=== PATIENT | female | born 1960 | race Caucasian/White ===

== ENCOUNTER 2016-12-23 14:18 | Emergency (ER) | payer MEDICAID ==
[~2016-12-23] VITALS: Ht 172.7 cm; Wt 113.4 kg
[~2016-12-23 14:18] MED LIST: NORCO 10/325 MG1 TAB PO; UNKNOWN ANTIBIOTIC PO
[2016-12-23 14:30] VITALS: BP 161/87
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
--- NOTE | 2016-12-23 15:29 | NUR ---
DR. STOVER AT BEDSIDE.
[2016-12-23 15:46] VITALS: BP 125/73
--- NOTE | 2016-12-23 15:47 | NUR ---
Patient discharged with v/s stable. Written and verbal after care instructions given and explained. Patient alert, oriented and verbalized understanding of instructions. Ambulatory with steady gait. All questions addressed prior to discharge. ID band removed. Patient advised to follow up with PMD. Rx of BACTRIM,KEFLEX given. Patient educated on indication of medication including possible reaction and side effects. Opportunity to ask questions provided and answered.ENCOURAGED FLUID INTAKE AND PT AGREED WITH IT.
== END 2016-12-23 15:47 | disposition home or self-care (01) ==
LOC: MED 14:34
DX: L03.211 Cellulitis of face (principal); Z90.49 Acquired absence of other specified parts of digestive tract; Z98.84 Bariatric surgery status

== ENCOUNTER 2017-02-06 13:41 | Emergency (ER) | payer MEDICAID ==
[~2017-02-06] VITALS: Ht 172.7 cm; Wt 115.3 kg
[2017-02-06 13:46] VITALS: BP 149/87
--- NOTE | 2017-02-06 14:18 | NUR ---
Patient ambulated to OF2 to be evaluated as fast track by Dr. Pal.
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
--- NOTE | 2017-02-06 14:30 | NUR ---
Patient being evaluated by physician at bedside.
[2017-02-06 15:34] VITALS: BP 142/85
--- NOTE | 2017-02-06 15:34 | NUR ---
Patient discharged with v/s stable. Written and verbal after care instructions given and explained. Patient alert, oriented and verbalized understanding of instructions. Ambulatory with steady gait. All questions addressed prior to discharge. ID band removed. Patient advised to follow up with PMD. Rx of KEFLEX 500MG CAPS given. Patient educated on indication of medication including possible reaction and side effects. Opportunity to ask questions provided and answered.
== END 2017-02-06 15:34 | disposition home or self-care (01) ==
LOC: MED 13:41
DX: L03.311 Cellulitis of abdominal wall (principal)

== ENCOUNTER 2017-04-19 23:03 | Emergency (ER) | payer MEDICAID ==
[~2017-04-19] VITALS: Ht 172.7 cm; Wt 120.2 kg
[2017-04-19 23:06] VITALS: BP 163/97
--- NOTE | 2017-04-19 23:17 | NUR ---
VISION ACUITY RT EYE 20/30 , LT EYE 20/20 BOTH 20/20
--- NOTE | 2017-04-19 23:20 | NUR ---
TO ER BED 8
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
[2017-04-19] MEDS ORDERED: ceFAZolin 1,000 MG VIAL IM ONE (23:25)
--- NOTE | 2017-04-19 23:25 | NUR ---
Patient being evaluated by physician at bedside.
[2017-04-19] MEDS ORDERED: WATER STERILE 10 ML MC ONE (23:41)
[2017-04-19 23:57] VITALS: BP 152/91
== END 2017-04-19 23:56 | disposition home or self-care (01) ==
LOC: MED 23:03
DX: L03.211 Cellulitis of face (principal)
CPT/HCPCS: 96372; 99283; J0690

== ENCOUNTER 2017-07-13 22:06 | Emergency (ER) | payer MEDICAID ==
[~2017-07-13] VITALS: Ht 172.7 cm; Wt 116.1 kg
[2017-07-13 22:11] VITALS: BP 139/84
--- NOTE | 2017-07-13 22:50 | NUR ---
PT TAKEN TO OF
--- NOTE | 2017-07-13 22:55 | NUR ---
Dr. Pal evaluating patient
[2017-07-13 23:45] VITALS: BP 139/84
== END 2017-07-13 23:45 | disposition home or self-care (01) ==
LOC: MED 22:06
DX: L03.311 Cellulitis of abdominal wall (principal)
CPT/HCPCS: 99283

== ENCOUNTER 2017-08-23 19:28 | Emergency (ER) | payer MEDICAID ==
[~2017-08-23] VITALS: Ht 170.2 cm; Wt 113.4 kg
[2017-08-23 19:34] VITALS: BP 152/86
[2017-08-23] MEDS ORDERED: SULFAMETH/TRIMETH DS 800/160MG 1 TAB PO ONE (20:35)
[2017-08-23] MEDS ORDERED: CEPHALEXIN 500 MG CAP PO ONE (20:35)
[2017-08-23 21:07] VITALS: BP 134/75
== END 2017-08-23 21:07 | disposition home or self-care (01) ==
LOC: MED 19:28
DX: L03.311 Cellulitis of abdominal wall (principal); R03.0 Elevated blood-pressure reading, without diagnosis of hypertension
CPT/HCPCS: 99283

== ENCOUNTER 2017-12-12 18:40 | Emergency (ER) | payer SELFPAY ==
--- NOTE | 2017-12-12 19:10 | NUR ---
PATIENT LEFT WITHOUT BEING SEEN BY DR. MAGAÑA. NO FURTHER CARE PROVIDED FOR PATIENT.
== END 2017-12-12 19:10 | disposition left against medical advice (07) ==
LOC: MED 18:40
DX: Z53.21 Procedure and treatment not carried out due to patient leaving prior to being seen by health care provider (principal)

== ENCOUNTER 2018-05-09 19:03 | Emergency (ER) | payer MEDICAID ==
[~2018-05-09] VITALS: Ht 172.7 cm; Wt 115.7 kg
[2018-05-09 19:04] VITALS: BP 121/81
[2018-05-09 19:41] VITALS: BP 120/80
== END 2018-05-09 19:41 | disposition home or self-care (01) ==
LOC: MED 19:03
DX: L73.9 Follicular disorder, unspecified (principal); F32.9 Major depressive disorder, single episode, unspecified; F41.9 Anxiety disorder, unspecified
CPT/HCPCS: 99283

== ENCOUNTER 2018-08-10 19:03 | Emergency (ER) | payer MEDICAID ==
[~2018-08-10] VITALS: Ht 172.7 cm; Wt 115.7 kg
[2018-08-10 19:06] VITALS: BP 130/80
[2018-08-10] MEDS ORDERED: KETOROLAC 60 MG/2 ML VIAL IM ONE (20:25)
[2018-08-10 21:18] VITALS: BP 129/79
== END 2018-08-10 21:19 | disposition home or self-care (01) ==
LOC: MED 19:03
DX: S80.02XA Contusion of left knee, initial encounter (principal); F17.200 Nicotine dependence, unspecified, uncomplicated; Z90.49 Acquired absence of other specified parts of digestive tract; Z98.84 Bariatric surgery status; W18.39XA Other fall on same level, initial encounter; Y93.89 Activity, other specified; Y92.89 Other specified places as the place of occurrence of the external cause; Y99.8 Other external cause status
CPT/HCPCS: 29505; 73562; 96372; 99284; J1885

== ENCOUNTER 2018-08-22 18:20 | Emergency (ER) | payer MEDICAID ==
[~2018-08-22] VITALS: Ht 170.2 cm; Wt 115.7 kg
[2018-08-22 18:36] VITALS: BP 139/97
--- NOTE | 2018-08-22 18:40 | NUR ---
PT AMBULATES TO BED 8
--- NOTE | 2018-08-22 18:43 | NUR ---
PATIENT PRESENTS TO ED WITH C/O LT KNEE PAIN X 2 1/2 WEEKS S/P FALL, NO SWELLING, NO REDNESS, PATIENT STATES PAIN OF 6/10 AT THIS TIME; VSS; PATIENT POSITIONED FOR COMFORT; HOB ELEVATED; BEDRAILS UP X2; BED DOWN. ER MD MADE AWARE OF PT STATUS.
[2018-08-22] MEDS ORDERED: KETOROLAC 60 MG/2 ML VIAL IM ONE (19:05)
--- NOTE | 2018-08-22 19:08 | NUR ---
XRAY AT BEDSIDE
--- NOTE | 2018-08-22 19:17 | NUR ---
report given to nightclub manager nurse for continue of care. pt is resting in bed, no s/s of distress, vss, denies pain.
--- NOTE | 2018-08-22 19:18 | NUR ---
PT SITTING UP IN BED, VITALS STABLE. PT STATED SHE DOES NOT HAVE PAIN AT THIS TIME. MADE AWARE.
--- NOTE | 2018-08-22 19:52 | NUR ---
4 INCH MYRIAM WRAP APPLIED TO PT L KNEE. +CSM
[2018-08-22 19:55] VITALS: BP 132/89
--- NOTE | 2018-08-22 19:56 | NUR ---
Patient discharged with v/s stable. Written and verbal after care instructions given and explained. Patient alert, oriented and verbalized understanding of instructions. Ambulatory with steady gait. All questions addressed prior to discharge. ID band removed. Patient advised to follow up with PMD. Rx of NAPROXYN given. Patient educated on indication of medication including possible reaction and side effects. Opportunity to ask questions provided and answered.
== END 2018-08-22 19:56 | disposition home or self-care (01) ==
LOC: MED 18:20
DX: S80.02XA Contusion of left knee, initial encounter (principal); W19.XXXA Unspecified fall, initial encounter; Y93.89 Activity, other specified; Y92.89 Other specified places as the place of occurrence of the external cause; Y99.8 Other external cause status
CPT/HCPCS: 73562; 96372; 99284; J1885

== ENCOUNTER 2018-12-04 00:01 | Emergency (ER) | payer MEDICAID ==
[~2018-12-04] VITALS: Ht 172.7 cm; Wt 118.4 kg
[2018-12-04 00:17] VITALS: BP 137/93
--- NOTE | 2018-12-04 00:22 | NUR ---
PT AMBULATED TO BED 2
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
--- NOTE | 2018-12-04 00:44 | NUR ---
X-RAY AT BEDSIDE AT THIS TIME.
[2018-12-04] MEDS ORDERED: KETOROLAC 30 MG/ML VIAL IM ONE (01:20)
--- NOTE | 2018-12-04 01:20 | NUR ---
PT LAYING IN BED, VSS, COMPLAINING OF PAIN AT 10/. PROVIDED ICE PACK FOR PT. OFELIA ESPINOSA NOTIFIED.
--- NOTE | 2018-12-04 01:56 | NUR ---
ANISH EMT PUTING SLING AND SPLINT ON PT AT THIS TIME.
--- NOTE | 2018-12-04 02:05 | NUR ---
VOLAR SPLINT APPLIED TO PT L ARM, RESTING IN POSITION OF FUNCTION AND WRAPPED IN MYRIAM WRAP. +CSM
--- NOTE | 2018-12-04 02:15 | NUR ---
SLING SIZE MEDIUM APPLIED TO PT L ARM, FITTED TO REST ARM PARALLEL TO GROUND
[2018-12-04 02:27] VITALS: BP 130/80
== END 2018-12-04 02:28 | disposition home or self-care (01) ==
LOC: MED 00:01
DX: S63.502A Unspecified sprain of left wrist, initial encounter (principal); W18.09XA Striking against other object with subsequent fall, initial encounter; Y93.89 Activity, other specified; Y92.89 Other specified places as the place of occurrence of the external cause; Y99.8 Other external cause status
CPT/HCPCS: 29125; 73090; 73130; 96372; 99283; J1885; Q0092

== ENCOUNTER 2019-01-05 17:30 | Emergency (ER) | payer MEDICAID ==
[~2019-01-05] VITALS: Ht 172.7 cm; Wt 115.9 kg
[2019-01-05 17:35] VITALS: BP 128/72
--- NOTE | 2019-01-05 17:38 | NUR ---
PT AMBULATES BACK TO THE LOBBY
--- NOTE | 2019-01-05 20:09 | NUR ---
PT CALLED X 1 NO RESPONSE
--- NOTE | 2019-01-05 20:20 | NUR ---
CALLED X 2 NO REPONSE
--- NOTE | 2019-01-05 20:29 | NUR ---
PATIENT LEFT WITHOUT BEING SEEN BY DR. BOWER. NO FURTHER CARE PROVIDED FOR PATIENT.
== END 2019-01-05 20:09 | disposition left against medical advice (07) ==
LOC: MED 17:30
DX: R05 Cough (principal); R07.9 Chest pain, unspecified; Z53.21 Procedure and treatment not carried out due to patient leaving prior to being seen by health care provider

== ENCOUNTER 2019-01-06 03:31 | Emergency (ER) | payer MEDICAID ==
[~2019-01-06] VITALS: Ht 172.7 cm; Wt 113.4 kg
[2019-01-06 03:35] VITALS: BP 139/67
--- NOTE | 2019-01-06 03:41 | NUR ---
Patient ambulated to bed 11. RN evaluating patient at bedside.
--- NOTE | 2019-01-06 03:45 | NUR ---
58 y/o f presented to ED with c/o cough and sore throat x 2 weeks. Per pt had flu 3 weeks ago and cough/sore throat followed afterwards. has been taking robitussin x 1 week with no relief. stated "when i take deep breaths it hurts so bad in my back and chest". bilateral lung gill clear. no exudate or redness noted to throat. denies n/v/d. bedrail x1 for safety. notified. will continue to monitor. PMH: mckayies JOSE RAUL
--- NOTE | 2019-01-06 04:13 | NUR ---
Radiology at bedside.
[2019-01-06 04:25] VITALS: BP 130/82
--- NOTE | 2019-01-06 04:25 | NUR ---
Patient discharged with v/s stable. Written and verbal after care instructions given and explained. Patient alert, oriented and verbalized understanding of instructions. Ambulatory with steady gait. All questions addressed prior to discharge. ID band removed. Patient advised to follow up with PMD. Rx of Azithromycin, Prednisone, and albuterol given. Patient educated on indication of medication including possible reaction and side effects. Opportunity to ask questions provided and answered.
== END 2019-01-06 04:25 | disposition home or self-care (01) ==
LOC: MED 03:31
DX: J40 Bronchitis, not specified as acute or chronic (principal); J44.9 Chronic obstructive pulmonary disease, unspecified; F17.210 Nicotine dependence, cigarettes, uncomplicated
CPT/HCPCS: 71045; 99283; Q0092

== ENCOUNTER 2019-02-12 10:24 | Emergency (ER) | payer SELFPAY ==
[~2019-02-12] VITALS: Ht 170.2 cm; Wt 113.9 kg
[2019-02-12 10:26] VITALS: BP 116/86
--- NOTE | 2019-02-12 10:33 | NUR ---
58/F BIB SELF c/o persistant hacking cough, productive x 4 days. seen in our 01/06/2019 dx bronchitis rx antibiotic---alleviated cough but returned 4 days. C/O fungus to finger nails. smoker. PATIENT STATES PAIN OF 0/10 AT THIS TIME. PATIENT POSITIONED FOR COMFORT; HOB ELEVATED; BEDRAILS UP X2; BED DOWN. ER MD MADE AWARE OF PT STATUS.
[2019-02-12 11:27] VITALS: BP 119/82
--- NOTE | 2019-02-12 11:27 | NUR ---
Patient discharged with v/s stable. Written and verbal after care instructions given and explained. Patient alert, oriented and verbalized understanding of instructions. Ambulatory with to car. All questions addressed prior to discharge. ID band removed. Patient advised to follow up with PMD.NO Rx given. Patient educated on indication of medication including possible reaction and side effects. Opportunity to ask questions provided and answered.
== END 2019-02-12 11:27 | disposition home or self-care (01) ==
LOC: MED 10:24
DX: B35.1 Tinea unguium (principal); J06.9 Acute upper respiratory infection, unspecified; J44.9 Chronic obstructive pulmonary disease, unspecified; F17.210 Nicotine dependence, cigarettes, uncomplicated
CPT/HCPCS: 99281

== ENCOUNTER 2019-06-27 08:31 | Emergency (ER) | payer SELFPAY ==
[~2019-06-27] VITALS: Ht 170.2 cm; Wt 115.4 kg
[2019-06-27 08:43] VITALS: BP 118/70
--- NOTE | 2019-06-27 08:45 | NUR ---
ERMD AT BEDSIDE
--- NOTE | 2019-06-27 08:52 | NUR ---
PT AMB TO BED 9
[2019-06-27] MEDS ORDERED: KETOROLAC 30 MG/ML VIAL IVP ONE (09:00)
[2019-06-27] MEDS ORDERED: NACL 0.9% 1,000 ML IV ONE ×2 (09:00→10:00)
[2019-06-27] MEDS ORDERED: diphenhydrAMINE 50 MG/ML VIAL IVP ONE (09:00)
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
[2019-06-27 09:23] LABS: BASOPHILS % (AUTO) 0.2 % (0.0-2.0); EOSINOPHILS % (AUTO) 0.5 % (0.0-4.0); HEMATOCRIT 37.8 % (36-48); HEMOGLOBIN 12.3 g/dL (12.0-16.0); LYMPHOCYTES # (AUTO) 1.4 K/uL (2.5-16.5); LYMPHOCYTES % (AUTO) 20.3 % (20.5-51.1); MEAN CORPUSCULAR HEMOGLOBIN 26 pg (27-31); MEAN CORPUSCULAR HGB CONC 33 g/dL (33-37); MEAN CORPUSCULAR VOLUME 80.7 fL (80-94); MONOCYTES # (AUTO) 0.8 K/uL (0.8-1.0); MONOCYTES % (AUTO) 11.4 % (1.7-9.3); NEUTROPHILS # (AUTO) 4.6 K/uL (1.8-7.7); NEUTROPHILS % (AUTO) 67.6 % (42.2-75.2); PLATELET COUNT (AUTO) 258 K/uL (140-450); RED BLOOD CELL COUNT(AUTO) 4.68 MIL/uL (4.20-5.40); RED CELL DISTRIBUTION WIDTH 15.8 % (11.6-13.7); WHITE BLOOD COUNT (AUTO) 6.8 K/uL (4.8-10.8)
[2019-06-27] MEDS ORDERED: cefTRIAXone 1,000 MG VIAL ONE (09:35)
[2019-06-27 09:54] LABS: ANION GAP 12.3 (8-16); CREATININE 1.1 mg/dL (0.6-1.3); POTASSIUM 3.3 mmol/L (3.5-5.1); TOTAL BILIRUBIN 0.4 mg/dL (0.0-1.0)
[2019-06-27 09:55] LABS: ALBUMIN 3.3 g/dL (3.4-5.0)
--- NOTE | 2019-06-27 10:00 | NUR ---
PT RESTING IN BED, NO NEW NEEDS AT THIS TIME
[2019-06-27 11:30] VITALS: BP 121/75
--- NOTE | 2019-06-27 11:33 | NUR ---
Patient discharged with v/s stable. Written and verbal after care instructions given and explained. Patient alert, oriented and verbalized understanding of instructions. Ambulatory with steady gait. All questions addressed prior to discharge. ID band removed. Patient advised to follow up with PMD. Rx of BACTRIM & NAPROSYN given. Patient educated on indication of medication including possible reaction and side effects. Opportunity to ask questions provided and answered.
== END 2019-06-27 11:25 | disposition home or self-care (01) ==
LOC: MED 08:31
DX: L03.115 Cellulitis of right lower limb (principal); R51 Headache; M62.838 Other muscle spasm
CPT/HCPCS: 36415; 80053; 85025; 85651; 87040; 96365; 96375; 99283; J0696; J1200; J1885; J7030

== ENCOUNTER 2019-12-24 12:30 | Emergency (ER) | payer MEDICAID ==
[~2019-12-24] VITALS: Ht 172.7 cm; Wt 122.5 kg
[2019-12-24 13:09] VITALS: BP 134/70
--- NOTE | 2019-12-24 13:15 | NUR ---
PT AMBULATED TO BED 12
--- NOTE | 2019-12-24 13:17 | NUR ---
59 Y/O FEMALE PRESENT WITH DRY COUGH X A FEW WEEKS. DENIES ANY FEVER/CHILLS, N/V/D. RESP EVEN AND UNLABORED. LUNG SOUNDS CLEAR IN BILAT LOBES. PT REPORTS THAT ONCE A YEAR SHE GETS A BAD COUGH THAT CLEARS UP WITH A STEROID SHOT. CAP REFILL <3. AAOX4. NO PMH NKA
[2019-12-24] MEDS ORDERED: methylPREDNISolone SS 125 MG/2 ML VIAL IM ONE (13:40)
[2019-12-24 14:42] VITALS: BP 134/70
--- NOTE | 2019-12-24 14:43 | NUR ---
Patient discharged with v/s stable. Written and verbal after care instructions given and explained. Patient alert, oriented and verbalized understanding of instructions. Ambulatory with steady gait. All questions addressed prior to discharge. ID band removed. Patient advised to follow up with PMD. Rx of PROMETHAZINE, PREDISONE given. Patient educated on indication of medication including possible reaction and side effects. Opportunity to ask questions provided and answered.
== END 2019-12-24 14:43 | disposition home or self-care (01) ==
LOC: MED 12:30
DX: J06.9 Acute upper respiratory infection, unspecified (principal)
CPT/HCPCS: 96372; 99283; J2930

== ENCOUNTER 2019-12-28 17:53 | Emergency (ER) | payer MEDICAID ==
[~2019-12-28] VITALS: Ht 170.2 cm; Wt 119.3 kg
[2019-12-28 18:13] VITALS: BP 133/78
[2019-12-28] MEDS ORDERED: DEXAMETHASONE 10 MG/ML VIAL IM ONE (19:20)
[2019-12-28 19:43] VITALS: BP 133/78
== END 2019-12-28 19:43 | disposition home or self-care (01) ==
LOC: MED 17:53
DX: J20.9 Acute bronchitis, unspecified (principal)
CPT/HCPCS: 71045; 96372; 99283; J1100; Q0092

== ENCOUNTER 2019-12-29 22:32 | Inpatient (IN) | payer MEDICAID ==
[~2019-12-29] VITALS: Ht 172.7 cm; Wt 123.8 kg
--- NOTE | 2019-12-29 22:34 | NUR ---
PT HARLEY VITAL AND TAKEN TO BED 5 VIA GURNEY. PT ABLE TO AMBULATE TO BED WITH STEADY GAIT.
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
[2019-12-29 22:42] VITALS: BP 133/82
--- NOTE | 2019-12-29 23:00 | NUR ---
AT BEDSIDE, REMOVED O2 VIA NC @ THIS TIME. SPO2 REMAINS ABOVE 95%.
[2019-12-29] MEDS ORDERED: NACL 0.9% 1,000 ML IV ONE (23:35)
[2019-12-29] MEDS ORDERED: ALBUTEROL 0.083% 2.5 MG/3 ML NEBU INH ONE (23:35)
--- NOTE | 2019-12-29 23:44 | NUR ---
IV ESTABLISHED IN LT AC. 1L NS RUNNING WIDE OPEN PER MD ORDERS.
[2019-12-30] VITALS (77 sets, daily range): BP systolic 51–160; BP diastolic 33–109
--- NOTE | 2019-12-30 00:05 | NUR ---
RESPIRATORY AT BEDSIDE. PT ON BREATHING TX
[2019-12-30] MEDS ORDERED: MORPHINE SULFATE 4 MG/ML SYR IVP ONE (00:10)
[2019-12-30 00:31] LABS: BASOPHILS % (AUTO) 0.3 % (0.0-2.0); EOSINOPHILS % (AUTO) 0.1 % (0.0-4.0); HEMATOCRIT 36.2 % (36-48); HEMOGLOBIN 11.3 g/dL (12.0-16.0); LYMPHOCYTES # (AUTO) 2.8 K/uL (2.5-16.5); MEAN CORPUSCULAR HEMOGLOBIN 25 pg (27-31); MEAN CORPUSCULAR HGB CONC 31 g/dL (33-37); MEAN CORPUSCULAR VOLUME 81.6 fL (80-94); MONOCYTES # (AUTO) 0.9 K/uL (0.8-1.0); NEUTROPHILS # (AUTO) 11.6 K/uL (1.8-7.7); PLATELET COUNT (AUTO) 424 K/uL (140-450); RED BLOOD CELL COUNT(AUTO) 4.44 MIL/uL (4.20-5.40); RED CELL DISTRIBUTION WIDTH 16.5 % (11.6-13.7); WHITE BLOOD COUNT (AUTO) 15.3 K/uL (4.8-10.8)
[2019-12-30 00:41] LABS: ANION GAP 12.2 (8-16); CARBON DIOXIDE 29.1 mmol/L (21-32); CREATININE 1.2 mg/dL (0.6-1.3); POTASSIUM 3.3 mmol/L (3.5-5.1)
[2019-12-30 00:57] LABS: NEUTROPHILS % (AUTO) 75.6 % (42.2-75.2)
--- NOTE | 2019-12-30 01:42 | NUR ---
PT WENT TO CT
--- NOTE | 2019-12-30 01:58 | NUR ---
PT RETURNED FROM CT VIA [facility].
[2019-12-30] MEDS ORDERED: LIDOCAINE VISCOUS 2% 20 ML UDC PO ONE (02:35)
--- NOTE | 2019-12-30 02:51 | NUR ---
NEW ORDERS FOR PO LIDOCAINE. CLAIRIFIED WITH ERMD D/T NPO STATUS AND PT CLAIMING SHES UNABLE TO SWALLOW. MD AWARE. ORDERS IMPLEMENTED PRESCRIBED.
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
[2019-12-30] MEDS ORDERED: PIPERACILLIN/TAZOBACTAM 3.375 GM in DEXTROSE 5% 50 ML IV ONE (03:15)
[2019-12-30] MEDS ORDERED: PIPERACILLIN/TAZOBACTAM 3.375 GM VIAL IV ONE (03:16)
[2019-12-30] MEDS: DEXT 5% / NACL 0.45% 1,000 ML IV SCH ×3 (03:19→22:19)
[2019-12-30] MEDS ORDERED: DOCUSATE SODIUM 100 MG GELCAP PO PRN (03:20)
[2019-12-30] MEDS ORDERED: HYDROcodone/APAP 5/325 MG 1 TAB TAB PO PRN (03:20)
[2019-12-30] MEDS ORDERED: ONDANSETRON 4 MG/2 ML VIAL IM/IVP PRN (03:20)
[2019-12-30] MEDS ORDERED: ACETAMINOPHEN 325 MG TAB PO PRN (03:20)
[2019-12-30] MEDS ORDERED: MORPHINE SULFATE 2 MG/ML SYR IVP PRN (03:20)
[2019-12-30] MEDS ORDERED: ALBUTEROL SULFATE/IPRATROPIU 3 ML SOL IH PRN (03:35)
--- NOTE | 2019-12-30 03:45 | NUR ---
PT ADMITTED TO ICU D/T NEED FOR AIRWAY. ADMITTED WITH EDEMA TO AIRWAY INTERNALLY AND EXTERNALLY. PT WITH AUDIBLE WHEEZING. COARSE SOUNDS NOTED LEFT UPPER LOBE TO INSPIRATION/EXPIRATION, CLEAR TO REST. LABORED BREATHING NOTED. NO USE OF ACCESSORY MUSCLES. SPO2 92-94% ON 15LPM VIA COOL AEROSOL MASK. PT DROOLING AND STATING THAT SHE "CANNOT SWALLOW." C/O PAIN 10/10 TO THROAT. A/O X4. PERRL. PERIPHERAL IV WITH SALINE LOCK NOTED TO LT AC WITH ZOSYN INFUSING. BOWEL SOUNDS ACTIVE X4. NO ABD DISTENTION OR TENDERNESS UPON PALPATION. DENIES GI UPSET. DAUGHTER AT BEDSIDE.
[2019-12-30 03:59] LABS: PROTHROMBIN TIME 9.8 secs (10.8-13.4)
[2019-12-30] MEDS ORDERED: ETOMIDATE 20 MG/10 ML VIAL IVP ONE (04:00)
[2019-12-30] MEDS ORDERED: ETOMIDATE 20 MG/10 ML VIAL IVP SCH (04:00)
[2019-12-30] MEDS ORDERED: ROCURONIUM 50 MG/5 ML VIAL IV ONE (04:00)
[2019-12-30 04:14] LABS: ALBUMIN 3.2 g/dL (3.4-5.0); ANION GAP 13.6 (8-16); CARBON DIOXIDE 27.7 mmol/L (21-32); POTASSIUM 3.3 mmol/L (3.5-5.1); TOTAL BILIRUBIN 0.3 mg/dL (0.0-1.0)
[2019-12-30 04:22] LABS: CHOL/HDL RATIO 2.9 (1-4.5); MAGNESIUM 2.1 mg/dL (1.8-2.4); PHOSPHORUS 3.9 mg/dL (2.5-4.9); THYROID STIMULATING HORMONE 1.66 uIU/mL (0.34-3.74)
[2019-12-30] MEDS: PROPOFOL 1000 MG/100 ML PREMIX 100 ML IV PRN ×16 (04:30→09:51)
--- NOTE | 2019-12-30 04:30 | NUR ---
PERFORMING ORAL INTUBATION AT BEDSIDE. ETT TO VENT PLACED WITH SETTINGS FOLLOWS: AC/VC FIO2 @ 100%, TV 500, RT 14, PEEP 5. STARTED PROPOFOL @ 5MCG/KG/MIN, RASS -3 ACHIEVED AT THIS TIME. FLACC 0. HOB 30 DEGREES. SAFETY PRECAUTIONS REMAIN IN PLACE. BED LOW AND LOCKED. WILL CONT TO MONITOR.
[2019-12-30] MEDS ORDERED: PROPOFOL 1000 MG/100 ML PREMIX 100 ML IV ONE (04:35)
--- NOTE | 2019-12-30 04:45 | NUR ---
PT INTUBATED BY DR AMAYA.
--- NOTE | 2019-12-30 05:00 | NUR ---
CXR CONFIRMED POSITIVE PLACEMENT OF ETT.
--- NOTE | 2019-12-30 05:39 | NUR ---
DAUGHTER AT BEDSIDE AT THIS TIME.
[2019-12-30] MEDS: ALBUTEROL SULFATE/IPRATROPIU 3 ML SOL IH SCH ×3 (06:27→19:04)
--- NOTE | 2019-12-30 06:37 | NUR ---
decreased fio2 to 70 spo2 100
[2019-12-30] MEDS ORDERED: fentaNYL 0.05 MG/ML VIAL ONE (07:04)
[2019-12-30 07:25] LABS: TOTAL BILIRUBIN 0.3 mg/dL (0.0-1.0)
[2019-12-30 07:26] LABS: ALBUMIN 3.2 g/dL (3.4-5.0)
--- NOTE | 2019-12-30 07:30 | NUR ---
RECEIVED CHANGE OF SHIFT REPORT FROM SALES AND MARKETING REPRESENTATIVE RN. PT IS SEDATED RASS -3. PERRLA. AFEBRILE. FLACC 0. NORMAL SINUS RHYTHM ON MONITOR. S1, S2 HEARD. CAP REFILL < 2 SECONDS. PULSES PALPABLE TO ALL EXTREMITIES. ETT TO VENT W SETTINGS FIO2 100%, VT 500, RR 14, PEEP 5. LUNGS CLEAR BILATERALLY, DIMINISHED LOWER LOBES. ABDOMEN ROUND, SOFT, NONTENDER. BOWEL SOUNDS PRESENTS X 4 QUADRANTS. PERIPHERAL IVS: 20G LEFT AC, 22G RIGHT HAND. ASYMPTOMATIC, PATENT, INTACT. PT RECEIVING PROPOFOL DRIP @ 80 MCG/KG/MIN (DRY WEIGHT 119.2 KG). IV FLUID D5 1/2 NS @ 70 MLS/HR. KINSEY CATHETER IN PLACE. DRAINING LIGHT TREVOR URINE TO GRAVITY. SKIN INTACT, DRY, WARM TO TOUCH. HOB AT 30 DEGREES. BED IN LOWEST POSITION, LOCKED. CALL LIGHT WITHIN REACH. SOFT WRIST RESTRAINTS IN PLACE. NO SKIN BREAK NOTED. NO SIGNS OF ACUTE DISTRESS NOTED AT THIS TIME. WILL CONTINUE TO MONITOR.
--- NOTE | 2019-12-30 07:36 | NUR ---
PATIENT HAS BEEN SCREENED AND CATEGORIZED HIGH NUTRITION RISK. PATIENT WILL BE SEEN WITHIN 1-2 DAYS OF ADMISSION. 12/31/19 01/01/[address]
--- NOTE | 2019-12-30 07:45 | NUR ---
CHEST X-RAY AT BEDSIDE. NO SIGNS OF DISTRESS
[2019-12-30] MEDS ORDERED: PIPERACILLIN/TAZOBACTAM 3.375 GM in DEXTROSE 5% 50 ML IV SCH (08:11)
--- NOTE | 2019-12-30 08:20 | NUR ---
DR BROWN IN UNIT TO SEE AND EXAM PT. WILL FOLLOW UP WITH ANY NEW ORDERS.
[2019-12-30] MEDS: NICOTINE TRANSD SYS 14 MG/24 HR PATCH TD SCH (08:31)
[2019-12-30] MEDS: PANTOPRAZOLE 40 MG INJ VIAL IVP SCH (08:32)
--- NOTE | 2019-12-30 08:45 | NUR ---
MEDICATIONS ADMINISTERED ORDERED. PT TOLERATED WELL
--- NOTE | 2019-12-30 08:54 | NUR ---
DECREASED FIO2 TO 50
[2019-12-30] MEDS ORDERED: NACL 0.9% 1,000 ML IV ONE ×4 (08:55→14:50)
[2019-12-30] MEDS ORDERED: POTASSIUM CHLORIDE 40 MEQ, LIDOCAINE MPF 1% 25 MG in NACL 0.9% 250 ML IV ONE (09:00)
[2019-12-30 09:15] LABS: APPEARANCE,URINE CLEAR (CLEAR); BILIRUBIN,URINE NEGATIVE (NEGATIVE); BLOOD, URINE TRACE-I (NEGATIVE); COLOR,URINE YELLOW (YELLOW); LEUKOCYTE ESTERASE ,URINE NEGATIVE (NEGATIVE); NITRITE, URINE POSITIVE (NEGATIVE); PH,URINE 5.5 (5.0-9.0); UGLUCOSE NEGATIVE (NEGATIVE)
[2019-12-30] MEDS: fentaNYL 1 MG in NACL 0.9% 80 ML IV PRN ×2 (09:20→18:07)
--- NOTE | 2019-12-30 09:25 | NUR ---
SPOKE TO BRITTANY ([facility]) [phone], RE NEED TO TRANSFER PT. FOR HIGHER LEVEL OF CARE.
[2019-12-30 09:34] LABS: BARBITURATE, URINE NEGATIVE ng/ml (NEG <=200); BENZODIAZEPINE, URINE NEGATIVE ng/mL (NEG <=200); CANNABINOID, URINE NEGATIVE ng/mL (NEG <=50); COCAINE, URINE NEGATIVE ng/mL (NEG <=300); OPIATE, URINE POSITIVE ng/mL (NEG <=2000); PHENCYCLIDINE SCREEN,URINE NEGATIVE ng/mL (NEG <=25)
--- NOTE | 2019-12-30 09:35 | NUR ---
MEDICAL RECORDS FAXED TO [facility] [phone]
--- NOTE | 2019-12-30 09:53 | NUR ---
SPOKE TO ROSIE ([employer]NA[employer]) [facility] [phone], NO CRITICAL BEDS AVAILABLE AT THIS TIME.
[2019-12-30 09:57] LABS: RBC,URINE NONE SEEN /HPF (0-5)
--- NOTE | 2019-12-30 10:22 | NUR ---
SPOKE TO WILFREDO AT [facility] ). Addendum: 12/30/19 at 1024 by Corinne Caal RN AT 1025 AM
--- NOTE | 2019-12-30 10:24 | NUR ---
MEDICAL RECORDS FAXED TO [facility]. FAX# [phone].
--- NOTE | 2019-12-30 10:35 | NUR ---
RECEIVED A CALL FROM PICC LINE NURSE ARTEM, PT'S PERTINENT INFO GIVEN. PER ARTEM, WILL CALL BACK WHEN HE IS 20 MIN AWAY.
--- NOTE | 2019-12-30 10:50 | NUR ---
ACCORDING TO BRITTANY FROM [facility], THEY WILL ACCEPT THE PT. NEEDS AUTHORIZATION FROM THE INSURANCE.
--- NOTE | 2019-12-30 10:55 | NUR ---
[facility], RE: NEED FOR AUTHORIZATION TO TRANSFER TO [facility] FOR HIGHER LEVEL OF CARE.
--- NOTE | 2019-12-30 11:05 | NUR ---
MOI FROM [facility] CALLED BACK. MADE AWARE OF PT'S NEED TO TRANSFER TO HIGHER LEVEL OF CARE AND AUTHORIZATION TO TRANSFER TO [facility]. PER MOI, SHE'S NOT ABLE TO GIVE AUTHORIZATION AND TO CALL [facility]. AFTER HOURS NUMBER IS [phone].
--- NOTE | 2019-12-30 11:10 | NUR ---
SPOKE TO TI FROM [facility] AFTER HOURS. STATES SHE CAN NOT GET INFO RE: PT. TO CALL [facility]. AFTER HRS. PHONE # [phone]. FAX# [phone].
--- NOTE | 2019-12-30 11:10 | NUR ---
BLOOD PRESSURE 81/54, HR 86. PT RECEIVED [address] PEREIRA MADE AWARE, PER DR. PEREIRA, KEEP TITRATING DOWN PROPOFOL AT THIS TIME. WILL CONTINUE TO MONITOR. Addendum: 12/30/19 at 1152 by Da Leblanc RN PER DR. PEREIRA, TITRATE PROPOFOL DOWN TO 5 MCG/KG/MIN, MONITOR FOR ABOUT AN HOUR AFTER AND CALL BACK IF BLOOD PRESSURE IS STILL LOW.
--- NOTE | 2019-12-30 11:20 | NUR ---
CALLED [facility]. UNABLE TO SPEAK TO A REP. OR LEAVE A MESSAGE. GOT ONLY CALL BACK DURING BUSINESS HOURS MESSAGE.
--- NOTE | 2019-12-30 11:30 | NUR ---
[facility] AWARE OF INABILITY TO OBTAIN AUTH. FOR TRANSFER.
--- NOTE | 2019-12-30 12:00 | NUR ---
CALLED [facility] AFTER HOURS AT [phone], NEEDS INSURANCE ID NUMBER. PROVIDED PT'S ID [id number], CALL TRANSFERRED TO ANSWERING MACHINE SEVERAL TIMES STATING TO CALL BACK DURING OFFICE HOURS MON-FRI. CONFIRMED AND VERIFIED ID# WITH SON, SOURAV, WHO STATED IT WAS CORRECT ID NUMBER.
[2019-12-30] MEDS: PIPERACILLIN/TAZOBACTAM 3.375 GM in DEXTROSE 5% 50 ML IV SCH ×2 (12:33→21:43)
--- NOTE | 2019-12-30 12:45 | NUR ---
RECEIVED A CALL FROM PT'S SON, SOURAV GARDINER. UPDATES GIVEN ON PT'S CONDITION. SOURAV REFUSED TO TRANSFER PT TO [facility]. OK TO TRANSFER PT TO [facility] PER SOURAV.
--- NOTE | 2019-12-30 13:00 | NUR ---
[facility] (BRITTANY) MADE AWARE THAT PT'S SON SOURAV DOES NOT WANT PT TO BE TRANSFERRED TO [place].
--- NOTE | 2019-12-30 13:05 | NUR ---
SPOKE TO TANYA FROM [facility], THEY NEED AUTHORIZATION FROM THE INSURANCE CO. STATES SHE WILL FAX FORMS THEY NEED BEFORE TRANSFER INCLUDING LETTER OF AGREEMENT.
--- NOTE | 2019-12-30 13:30 | NUR ---
DR. MELCHOR AWARE THAT UNABLE TO GET IN TOUCH WITH [facility] FOR AUTHORIZATION TO TRANSFER PT TO [place]. PILO THOMAS AND ADAM SUGAR SAMPLER ALSO AWARE.
--- NOTE | 2019-12-30 13:40 | NUR ---
PICC LINE INSERTION AT BEDSIDE, TIME OUT CALLED. PT STILL ON FENTANYL DRIP, NO S/SX OF ACUTE DISTRESS NOTED AT THIS TIME.
--- NOTE | 2019-12-30 13:48 | NUR ---
CHEST X-RAY DONE AFTER PICC LINE INSERTION.
[2019-12-30] MEDS: MIDAZOLAM MDV 50 MG in NACL 0.9% 40 ML IV PRN (14:00)
[2019-12-30 14:36] LABS: BASOPHILS % (AUTO) 0.3 % (0.0-2.0); EOSINOPHILS % (AUTO) 0.1 % (0.0-4.0); HEMATOCRIT 34.7 % (36-48); HEMOGLOBIN 10.8 g/dL (12.0-16.0); LYMPHOCYTES # (AUTO) 1.6 K/uL (2.5-16.5); LYMPHOCYTES % (AUTO) 13.8 % (20.5-51.1); MEAN CORPUSCULAR HEMOGLOBIN 26 pg (27-31); MEAN CORPUSCULAR HGB CONC 31 g/dL (33-37); MEAN CORPUSCULAR VOLUME 82.3 fL (80-94); MONOCYTES # (AUTO) 0.7 K/uL (0.8-1.0); MONOCYTES % (AUTO) 5.8 % (1.7-9.3); NEUTROPHILS # (AUTO) 9.2 K/uL (1.8-7.7); PLATELET COUNT (AUTO) 348 K/uL (140-450); RED BLOOD CELL COUNT(AUTO) 4.22 MIL/uL (4.20-5.40); RED CELL DISTRIBUTION WIDTH 17.1 % (11.6-13.7); WHITE BLOOD COUNT (AUTO) 11.5 K/uL (4.8-10.8)
[2019-12-30] MEDS ORDERED: NOREPINEPHRINE 8 MG in DEXTROSE 5% 250 ML IV PRN ×2 (14:40→14:50)
[2019-12-30 14:59] LABS: ANION GAP 12.3 (8-16); CARBON DIOXIDE 27.8 mmol/L (21-32); POTASSIUM 4.1 mmol/L (3.5-5.1)
[2019-12-30 15:48] LABS: CREATININE 1.4 mg/dL (0.6-1.3)
--- NOTE | 2019-12-30 16:00 | NUR ---
VAP ORAL CARE GIVEN. TURNED AND REPOSITIONED FOR COMFORT AND PRESSURE AREAS OFF LOADED. BED BATH GIVEN, LINENS CHANGED. PT TOLERATED WELL.
[2019-12-30] MEDS ORDERED: VANCOMYCIN PER PHARMACY MC PRN (18:15)
--- NOTE | 2019-12-30 18:15 | NUR ---
GAVE PT UPDATE TO DR GLAINDO AT BEDSIDE. NO NEW ORDERS AT THIS TIME.
--- NOTE | 2019-12-30 18:45 | NUR ---
RECEIVED TELEPHONE NOTIFICATION FROM DR GALINDO. PT WILL BE ON A STEROID TAPER.
[2019-12-30] MEDS ORDERED: methylPREDNISolone SS 125 MG/2 ML VIAL IVP ONE (19:05)
--- NOTE | 2019-12-30 19:15 | NUR ---
GIVE CHANGE OF SHIFT REPORT TO PM RN
[2019-12-30] MEDS ORDERED: VANCOMYCIN 2,000 MG in DEXTROSE 5% 500 ML IV ONE (19:30)
--- NOTE | 2019-12-30 19:30 | NUR ---
RECEIVED CHANGE OF SHIFT REPORT FROM DAY SHIFT RN. PT IS SEDATED RASS -3 ACHIEVED PER MD ORDERS. PERRLA. AFEBRILE. FLACC 0. SINUS RHYTHM ON MONITOR. +S1, S2 UPON AUSCULTATION. CAP REFILL < 3 SECONDS. PULSES PALPABLE TO ALL EXTREMITIES. ETT TO VENT W SETTINGS FIO2 40%, VT 500, RR 14, PEEP 5. LUNGS COARSE BILATERALLY WITH DIMINISHED LOWER LOBES. ABDOMEN ROUND, SOFT, NON-DISTENDED. BOWEL SOUNDS ACTIVE. PERIPHERAL IVS: 20G LEFT AC, PICC TO RIGHT UPPER ARM INFUSING VERSED @ 3MG/HR, FENTANYL 119.2 MCG/HR (11.92 ML/HR), LEVOPHED 4.997 MCG/MIN, 1/2 D5 @ 120 ML/HR. (DRY WEIGHT 119.2 KG). KINSEY CATHETER IN PLACE. DRAINING CLEAR YELLOW URINE TO GRAVITY. SKIN WARM, DRY AND INTACT. HOB @ 30 DEGREES. BED LOWEST POSITION, LOCKED. CALL LIGHT WITHIN REACH. SOFT WRIST RESTRAINTS IN PLACE. NO INJURIES NOTED. CIRCULATION CHECK WNL. WILL CONTINUE TO MONITOR.
[2019-12-30] MEDS ORDERED: VANCOMYCIN 1,000 MG VIAL ONE (19:47)
--- NOTE | 2019-12-30 22:00 | NUR ---
REPOSITIONED WITH PRESSURE AREAS OFFLOADED. FLACC 0. SUCTIONED ETT WITH SCANT AMOUNT OF DARK RED SECRETIONS. SAFETY PRECAUTIONS REMAIN IN PLACE. BED LOW AND LOCKED. HOB REMAINS @ 30 DEGREES.
[2019-12-31] VITALS (104 sets, daily range): BP systolic 97–124; BP diastolic 28–76
--- NOTE | 2019-12-31 | NUR ---
VAP ORAL CARE PROVIDED. REPOSITIONED FOR COMFORT. FLACC 0. CONTINUES ON SEDATION WITH RASS -3 ACHIEVED PER MD ORDERS. SAFETY PRECAUTIONS REMAIN IN PLACE. BED LOW AND LOCKED. WILL CONT TO MONITOR.
[2019-12-31] MEDS: MIDAZOLAM MDV 50 MG in NACL 0.9% 40 ML IV PRN ×2 (00:53→18:57)
--- NOTE | 2019-12-31 02:00 | NUR ---
RASS -3 AT THIS TIME. REPOSITIONED WITHPRESSURE AREAS OFFLOADED. SANAM/CATH CARE PROVIDED. SAFETY PRECAUTIONS IN PLACE. WILL CONT TO MONITOR.
[2019-12-31] MEDS: fentaNYL 1 MG in NACL 0.9% 80 ML IV PRN ×3 (02:26→21:59)
--- NOTE | 2019-12-31 03:11 | NUR ---
PATIENTS FIO2 HAS BEEN LOWERED TO 28% THROUGH OUT SHIFT. SATS 92%
[2019-12-31] MEDS: PIPERACILLIN/TAZOBACTAM 3.375 GM in DEXTROSE 5% 50 ML IV SCH ×3 (05:41→20:03)
[2019-12-31] MEDS: methylPREDNISolone SS 125 MG/2 ML VIAL IVP SCH ×3 (05:41→20:03)
[2019-12-31 05:46] LABS: ANION GAP 12.4 (8-16); CARBON DIOXIDE 26.1 mmol/L (21-32); POTASSIUM 4.5 mmol/L (3.5-5.1)
[2019-12-31 05:51] LABS: MAGNESIUM 1.8 mg/dL (1.8-2.4); PHOSPHORUS 3.8 mg/dL (2.5-4.9)
[2019-12-31 05:58] LABS: ALBUMIN 2.7 g/dL (3.4-5.0); BILIRUBIN,DIRECT 0.2 mg/dL (0.0-0.3); TOTAL BILIRUBIN 0.6 mg/dL (0.0-1.0)
[2019-12-31 06:02] LABS: BASOPHILS % (AUTO) 0.1 % (0.0-2.0); HEMATOCRIT 35.4 % (36-48); LYMPHOCYTES # (AUTO) 0.6 K/uL (2.5-16.5); LYMPHOCYTES % (AUTO) 5.1 % (20.5-51.1); MEAN CORPUSCULAR HEMOGLOBIN 26 pg (27-31); MEAN CORPUSCULAR HGB CONC 31 g/dL (33-37); MEAN CORPUSCULAR VOLUME 82.2 fL (80-94); MONOCYTES # (AUTO) 0.2 K/uL (0.8-1.0); MONOCYTES % (AUTO) 1.3 % (1.7-9.3); NEUTROPHILS # (AUTO) 11.8 K/uL (1.8-7.7); NEUTROPHILS % (AUTO) 93.5 % (42.2-75.2); PLATELET COUNT (AUTO) 336 K/uL (140-450); RED BLOOD CELL COUNT(AUTO) 4.31 MIL/uL (4.20-5.40); RED CELL DISTRIBUTION WIDTH 16.8 % (11.6-13.7)
[2019-12-31] MEDS: ALBUTEROL SULFATE/IPRATROPIU 3 ML SOL IH SCH ×3 (06:32→19:27)
[2019-12-31] MEDS: DEXT 5% / NACL 0.45% 1,000 ML IV SCH ×3 (06:39→23:45)
[2019-12-31 07:13] LABS: WHITE BLOOD COUNT (AUTO) 12.6 K/uL (4.8-10.8)
--- NOTE | 2019-12-31 07:30 | NUR ---
RECEIVED SHIFT REPORT FROM ENT SURGEON RN. PT IS SEDATED. BEDSIDE MONITOR SHOWS SR 60S. S1, S2 HEARD. CAP REFILL < 3 SECONDS. ETT TO VENT W SETTINGS A/C VC FIO2 40%, VT 500, RR 14, PEEP 5.NO SIGNS OF ACUTE DISTRESS NOTED. PERIPHERAL IV 20G TO LEFT AC RUNNING 1/2 D5 AT 120 CC/HR.PICC LINE TO RIGHT UPPER ARM RUNNING VERSED AT 3 MG/HR AND FENTANYL DRIP AT 1 MCG/KG/HR BASED ON DRY WEIGHT 125 KG. RASS -3. ABDOMEN ROUND,LARGE, SOFT, NONTENDER. BOWEL SOUNDS PRESENTS X 4 QUADRANTS . KINSEY CATHETER IN PLACE DRAINING LIGHT TREVOR URINE TO GRAVITY. SKIN INTACT, DRY, WARM TO TOUCH.HOB ELEVATED AT 30 DEGREES. BED IN LOWEST POSITION, LOCKED. CALL LIGHT WITHIN REACH. SOFT WRIST RESTRAINTS IN PLACE. CIRCULATION CHECKED WELL. WILL CONTINUE TO MONITOR. NO FEVER. PER PM SHIFT RN. THEY WERE UNABLE TO INSERT NG OR OG TUBE .
[2019-12-31 08:06] LABS: T4 (THYROXINE) 7.2 ug/dL (4.5-12.0)
--- NOTE | 2019-12-31 08:15 | NUR ---
ORAL CARE AND SANAM CARE GIVEN. PT TOLERATED WELL. TURNED AND REPOSITIONED PT.
[2019-12-31] MEDS: VANCOMYCIN 1,000 MG in DEXTROSE 5% 250 ML IV SCH ×3 (08:33→23:39)
[2019-12-31] MEDS: PANTOPRAZOLE 40 MG INJ VIAL IVP SCH (08:53)
[2019-12-31] MEDS: NICOTINE TRANSD SYS 14 MG/24 HR PATCH TD SCH (08:54)
--- NOTE | 2019-12-31 10:20 | NUR ---
DC PLANNING PT WAS ADMITTED FROM HOME WITH A DX OF EPIGLOTTIS, OROPHARYNX ABSCESS. CT NECK SHOWED MULTIPLE LOW DENSITY MASSES VS ABSCESSES IN THE RIGHT OROPHARYNX . PT HAS AN ORDER TO TRANSFER TO THE [place] FOR ENT . CALLED [facility] SPOKE WITH JOSE DEUTSCH [phone] STATED [facility] IS NOT CONTRACTED WITH [facility] [employer] , [facility] IS CONTRACTED BUT FAMILY REFUSED PT TO GO THERE BECAUSE OF THE CONFIRMED CASE OF COVID 19. PER JOSE TO TRY [facility] [phone] [facility] [phone] CM TO FOLLOW Addendum: 12/31/19 at 1516 by Yeimi Knott DC PLANNING: CALLED [facility] [phone] SPOKE WITH BROOKE STATED AFTER REVIEWING WILL CALL BACK . I CALLED BACK SEVERAL TIMES WAS HOLD FOR LONG TIME AND UNABLE TO REACH ANY TRANSFER CENTER, CALLED BACK AGAIN SPOKE WITH REX STATED BROOKE HAS A PHONE PROBLEM AND SHE CAN'T USE HER'S BECAUSE OF PROTECTION FROM THE COVID 19. CALLED [facility] SPOKE WITH JUSTIN [phone] STATED THEY DON'T HAVE ENT CALLED [facility] SPOKE WITH HAROON STATED NO ENT CALLED [facility] SPOKE WITH PILO RICO STATED THE ENT COMES THEIR WITH CONSULT AND CURRENTLY NO ICU BED I ASKED THE FAX # TO REVIEW THE CASE FAXED [phone] PER JACKY WILL REVIEW AND CALL US BACK .CM TO FOLLOW Addendum: 12/31/19 at 1527 by Yeimi Knott CM DC PLANNING: CALLED ESTEPHANIA GARCIA AT [phone] LEFT A MESSAGE THAT THE HOSPITAL SHE PROVIDED ARE UNABLE TO ACCEPT PT . CALLED [facility] [phone] SPOKE WITH EDITH AND REOPEN THE CASE . IF THEY ARE ACCEPTING PT WILL CALL FAMILY MEMBER. [facility] WENT TO STRAIGHT TO VOICE MAIL LEFT A MESSAGE. Addendum: 12/31/19 at 1547 by Yeimi Knott CM DC PLANNING CALLED [facility] [phone] AGAIN SPOKE WITH BROOKE ,STATED THE SURGEON IS IN THE OR SOON HE COMES OUT WILL ASK HIM TO REVIEW. CALLED PT'S DAUGHTER SHELL [phone] UPDATED HER THE SITUATION , STILL REFUSED FOR HER MOM TO GO TO [facility] . TO FOLLOW Addendum: 12/31/19 at 1610 by Yeimi Knott CM DC PLANNING RECEIVED A CALL FROM JOSE DEUTSCH AT [facility] STATED SHE WILL CALL [facility] BUT IF [facility] ACCEPTED TO CALL THE AFTER HRS CM [phone] AND TRANSPORT CAN BE [facility] . Addendum: 12/31/19 at 1642 by Yeimi Knott CM DC PLANNING: CALLED JOSE AND NOTIFIED HER FAMILY AGREED FOR PT TO GO TO [place] JOSE PROVIDE THE VERBAL AUTH FOR [facility] IF THEY ACCEPT PT AUTH # [id number] AND TRANSPORT CAN BE [facility] [phone] OR [facility] IF THEY ACCEPT MEDICAL RATE [facility]. Addendum: 12/31/19 at 1744 by Yeimi Knott CM PA PLANNING CALLED [facility] [phone] SPOKE WITH JESSICA TO PLACE IT WILL CALL BUT PER THERE POLICE CAN NOT PUT WILL CALL THEY PROVIDE AMBULANCE , JUST TO CALL WHEN PATIENT IS READY TO GO. NOTIFIED [facility] PILO NERI AND EVELINA ICU CHARGE NURSE. CM TO FOLLOW Addendum: 01/01/20 at 0840 by Chelsy Jade CM CONTACTED [facility] TRANSFER [facility], ABLE TO SPEAK TO DOTTIE. SHE STATED THEIR DOCTOR KARO NEED TO LOOK AT CD IMAGES FIRST PRIOR TO ACCEPTING THE PATIENT. SHE STATED WE CAN SEND THE IMAGES THROUGH COMMERCIAL FINANCE MANAGER [address] [facility] [phone] TO ROOM 1102 (PATIENT'S FLOW) TRANSFER [facility]. WILL NOTIFY DR. MELCHOR. WILL FOLLOW UP. Addendum: 01/01/20 at 1019 by Chelsy Jade CONTACTED GET GARCIA OF AT [phone] TO INFORM HER OF THE PATIENT NOT ABLE TO TRANSFER OUT TO [facility] LAST NIGHT. I INFORMED HER THAT I AM CURRENTLY IN CONTACT WITH [facility] AND THEY ARE REQUESTING THE CD IMAGES FOR THEIR DOCTOR TO REVIEW. I ASKED HER IF [facility] IS NOT ABLE TO ACCEPT IF THEY ARE WILLING TO DO AN REBECCA WITH [facility]. SHE STATED NO BECAUSE THEY ARE NOT CONTRACTED. SHE ALSO STATED TO REACH OUT TO THE [facility] SO THEY CAN START LOOKING FOR ACCEPTING DOCTORS AND HOSPITALS. Addendum: 01/01/20 at 1103 by Chelsy Jade CM [facility] [phone], ASKED TO BE TRANSFERRED TO CASE MANAGEMENT. ABLE TO SPEAK TO KARY, WHICH THEN TRANSFERRED ME TO GET CHEN (ASSIGNED GET). SHE STATED MOST OF THE ENTS WITH [facility] ARE CONTRACTED WITH THEM. IF IN ANY CASE, [facility] IS NOT ABLE TO ACCEPT THE PATIENT, TO TRY [facility] AND [facility]. CONTACTED [facility] AT [phone], ABLE TO SPEAK TO EDGARDO. HE PROVIDED ME THE TRANSFER CENTER'S NUMBER [phone] OPT 1 IF IN CASE THE CALL WILL GET DISCONNECTED. CONTACTED THE PROVIDED NUMBER, ABLE TO SPEAK TO TOÑITO (LABORER CAR BARN) GOT TRANSFERRED TO [facility]. ABLE TO SPEAK TO [facility], PROVIDED HER OF THE PATIENT'S INFORMATION. SHE STATED TO GO AHEAD AND FAX OVER FACE SHEET, 3 DAYS OF PROGRESS NOTES AND IMAGING TO [phone]. WHEN ASKED IF WHO SHOULD I ATTENTION IT TOO, SHE STATED NO ONE BECAUSE IT GOES STRAIGHT TO THEIR OFFICE. REFERRAL SENT TO THE PROVIDED FAX NUMBER. Addendum: 01/01/20 at 1110 by Chelsy Jade CM CONTACTED [facility] AT [phone], ABLE TO SPEAK TO SAL (RECEIVING MANAGER). SHE PROVIDED ME WITH THE TRANSFER CENTER'S PHONE NUMBER [phone]. ABLE TO SPEAK TO KARY, SHE STATED PATIENT NEED A CANCER DIAGNOSIS BEFORE THEY CAN PROCESS THE REQUEST AND THEY DO NOT ACCEPT REFERRALS FOR JUST ENT. DR. MELCHOR MADE AWARE. Addendum: 01/01/20 at 1114 by Chelsy Jade CM 1030: CURLY SEARS TO [facility] TO DELIVER CD IMAGES. Addendum: 01/01/20 at 1128 by Chelsy Jade CM LATE ENTRY FOR 922: RECEIVED A CALL FROM PATIENT'S DAUGHTER SHANTI, INQUIRING ABOUT THE TRANSFER. SHE STATED "WHAT ARE YOU GUYS DOING. MY MOTHER NEEDS TO BE TRANSFERRED OUT TODAY." I EXPLAINED IT TO HER THAT I AM CURRENTLY WORKING WITH [facility]. SHE ANSWERED ME BACK "IT IS YOUR JOB TO TRANSFER THE PATIENT OUT AND IF IT IS NOT GOING TO HAPPEN TODAY, YOU WILL BE IN HELL." I MADE HER AWARE THAT UNDERSTAND WHERE SHE IS COMING FROM. AND I AM DOING THE BEST I CAN TO FIND A FACILITY AND WILL BE UPDATING HER SOON WE HAVE AN ACCEPTING FACILITY. ABLE TO VERBALIZE UNDERSTANDING BY STATING "OK". Addendum: 01/01/20 at 1133 by Chelsy Jade CM CONTACTED [facility] TRANSFER CENTER AT [phone], ABLE TO SPEAK TO EDITH. PER EDITH, THEY ARE DECLINING THIS CASE DUE TO THEIR RECONCILIATION ANALYST ENT THE PATIENT NEEDS A TERTIARY LEVEL OF TRANSFER. Addendum: 01/01/20 at 1152 by Chelsy Jade CM RECEIVED A FAX NOTIFICATION STATING THAT THE LINE IS BUSY. CONTACTED [facility] TRANSFER CENTER AGAIN REGARDING ALTERNATE FAX NUMBER. PER DALE THEY ONLY HAVE ONE AND WILL KEEP AN EYE ON IT AND WILL CALL ME BACK SOON THEY RECEIVED IT. CM WILL FOLLOW UP. Addendum: 01/01/20 at 1152 by Chelsy Jade CM REFERRAL RESENT TO [facility]. Addendum: 01/01/20 at 1221 by Chelsy Jade CM RECEIVED A CALL FROM PATIENT'S DAUGHTER SHANTI, UPDATED HER OF THE TRANSFER STATUS THAT I AM WORKING WITH [facility] AND [facility]. SHE BECAME UPSET AND STARTED TO BE VERBALLY ABUSIVE. I INFORMED HERE THAT I WILL HANG UP AND SHE CAN CALL ME BACK ONCE SHE IS CALM. SHE STATED SHE DID NOT WANT TO TALK TO ME ANYMORE AND ASKED TO BE TRANSFERRED TO THE [facility] [facility]EL[facility], WHICH I TRANSFERRED. Addendum: 01/01/20 at 1327 by Chelsy Jade CM RECEIVED A VOICEMAIL FROM [facility] INSURANCE VERIFICATION DEPT STATING THAT THEY ARE NOT CONTRACTED WITH THE INSURANCE. CONTACTED [facility] AT [phone], ABLE TO SPEAK TO JESSICA. AND SHE CONFIRMED THAT THEY ARE NOT CONTRACTED WITH Clerk [facility]. SHE ALSO STATED THAT THEY WILL BE NEEDING AN REBECCA FROM THE INSURANCE. CONTACTED GET GARCIA OF TO UPDATE HER. SHE STATED THEY CANNOT PROVIDE AN REBECCA AT THIS TIME UNLESS WE EXHAUSTED ALL THE RESOURCES. SHE PROVIDED ME WITH OTHER CONTRACTED FACILITIES NAMELY: [facility], [facility], [facility], [facility] AND [facility]. Addendum: 01/01/20 at 1328 by Chelsy Jade CM RECEIVED A VOICEMAIL FROM PATIENT'S SON CHRIS GARDINER STATING THAT HE WILL COME DOWN TO THE HOSPITAL TO CHECK WHAT I AM DOING REGARDING THE TRANSFER. Addendum: 01/01/20 at 1527 by Chelsy Jade CM TRANSFER BACK AGREEMENT FORM RECEIVED FROM [facility]. SIGNED BY PROGRESS DEVELOPER ABDIFATAH AND FAXED IT BACK TO [phone]. CONTACTED [facility] AT [phone] OPT 2 OPT 4, ABLE TO SPEAK TO MONICA AND GOT TRANSFERRED TO THEIR TRANSFER CENTER. ABLE TO SPEAK TO ARVIND, SHE STATED THEIR PROCESS IS TO HAVE AN ACCEPTING PHYSICIAN FIRST BEFORE WE CAN PROCEED. SHE ALSO STATED SHE WILL TRANSFER ME BACK TO ED. SPOKE WITH MONICA AGAIN, SHE PROVIDED ME WITH THE RECONCILIATION ANALYST ENT DR. ALVAREZ [phone] FOR DOC TO DOC CALL. DR. MELCHOR MADE AWARE. SHE DID A DOC TO DOC CALL WITH DR ALVAREZ AND DR. ALVAREZ RECOMMENDED TO GET AN ACCEPTING HOSPITALIST FIRST. CONTACTED [facility] AGAIN, ABLE TO SPEAK TO MONICA, SHE PROVIDED ME WITH THE RECONCILIATION ANALYST HOSPITALIST DR. GUY [phone]. [address] MELCHOR THE PHONE NUMBER. PER DR. MELCHOR, NO ANSWER AND SHE LEFT A MESSAGE. CONTACTED [facility] [phone], NO ANSWER. LEFT MESSAGE. CONTACTED [facility] AT [phone], CASE MANAGEMENT DEPT, NO ANSWER. LEFT MESSAGE. CONTACTED [facility] AT [phone], ABLE TO SPEAK TO ROSY OF TRANSFER CENTER. SH STATED THEY DO NOT HAVE A BED AND NO ENT DOCTOR WILL BE ABLE TO ACCEPT. SHE ALSO STATED THEY ARE HOLDING THEIR BEDS FOR THEIR ED PATIENTS. CONTACTED [facility] AT [phone], ABLE TO SPEAK TO SANDIE (RECEIVING MANAGER) SHE STATED SHE WILL TRANSFER ME TO THEIR ADMISSIONS, NO ANSWER. LEFT MESSAGE CONTACTED [facility] AT [phone], ABLE TO SPEAK TO JAMES (RECEIVING MANAGER) TRANSFERRED ME TO [facility]. SHE STATED THEY DO NOT HAVE ICU BEDS AT THIS TIME. BUT WILL CONTACT ME SOON BED OPENS. SHE ALSO PROVIDED ME THEIR FAX NUMBER [phone] TO SEND CLINICALS. CLINICALS SENT. CONTACTED [facility] AT [phone], SPOKE TO NURSE OUTBOUND TELEMARKETING REPRESENTATIVE DAMEON. SHE STATED WE SHOULD HAVE AN ACCEPTING PHYSICIAN BEFORE THEY CAN PROCESS THE TRANSFER. CONTACTED GET CHEN AT [facility], I INFORMED HER THAT I HAVE CONTACTED SEVERAL HOSPITALS AND THEY ARE REQUIRING AN ACCEPTING PHYSICIAN AND IF SHE IS ABLE TO HELP US FINDING THE ACCEPTING PHYSICIAN. I ALSO INFORMED HER THAT I HAVE CONTACTED [facility] AND THEY PROVIDED ME WITH THE RECONCILIATION ANALYST ENT DR ALVAREZ'S NUMBER AND IS WILLING TO ACCEPT THE PATIENT AND WE ARE TRYING TO FIND AN ACCEPTING REHAB TRAINER, DR ALVAREZ RECOMMENDED DR LAWS. SHE STATED THAT IF NOT WE CAN TRY [facility] [phone] AND THEIR IN NETWORK ENT SURGEON IS DR BARAHONA [phone]. CONTACTED [facility] AT [phone], ABLE TO SPEAK TO PANCHO ADMITTING NURSE. SHE STATED WE HAVE TO HAVE AN ACCEPTING PHYSICIAN FIRST BEFORE THEY CAN PROCESS THE TRANSFER. SHE ALSO CONFIRMED THAT DR. BARAHONA IS THEIR ENT SURGEON. DOCTOR'S NAME AND PHONE NUMBER PROVIDED TO DR. MELCHOR. CONTACTED Addendum: 01/01/20 at 1532 by Chelsy Jade [address]TACTED [facility] TRANSFER [facility] TO FOLLOW UP ON THE REFERRAL, ABLE TO SPEAK TO LALI. SHE STATED RN JAIME IS ON ANOTHER LINE AT THIS TIME HOWEVER SHE CAN TAKE THE MESSAGE. SHE STATED THAT THEY HAVE AN ACCEPTING ENT SURGEON DR OG GROVER PENDING ICU BED AT THE MOMENT. I INFORMED HER THAT IF BED WILL BE AVAILABLE AFTER HOURS TO CONTACT [facility]EL[facility] AT [phone] AND I ALSO PROVIDED HER OF THE UNIT'S PHONE NUMBER. DR. MELCHOR MADE AWARE. CHARGE NURSE NATHAN MADE AWARE WELL. Addendum: 01/01/20 at 1541 by Chelsy Jade CM CONTACTED [employer] [facility] AT [phone], ABLE TO SPEAK TO CARA. SHE STATED THEY ARE NOT ABLE TO SET UP WILL CALL TRANSPORT AT THIS TIME PER [facility] POLICY. SHE ALSO STATED JUST TO CALL BACK LATER ON ONCE TRANSFER IS FOR SURE. [facility] APPLICATION DEVELOPER SOLEDAD MADE AWARE. CHARGE NURSE MADE AWARE. Addendum: 01/02/20 at 0857 by Yeimi Knott CM DC PLANNING: CALLED [facility] [phone] TRANSFER CENTER SPOKE WITH MALLORY, STATED HE DOESN'T KNOW IF THERE IS ANY ICU BED AVAILABLE AT THIS TIME ,THE BED HUDDLE STARTS AT 9AM AND TO CALL BACK AFTER 9:30 AM. CM TO FOLLOW Addendum: 01/02/20 at 1042 by Yeimi Knott CM DC PLANNING: CALLED [facility] [phone] SPOKE WITH [place] STATED THERE IS NO ICU BED AVAILABLE AT THIS TIME, THEY MIGHT HAVE DOWN GRADE IN THE AFTERNOON AND WILL CALL US BACK. CALLED [facility] [phone] SPOKE WITH VANDANA BARRERA ALL THE CLINICALS ,WORKING ON IT RIGHT NOW NO ICU BED ,WILL CALL US BACK. CALLED [facility] [phone] NO ANSWER WILL TRY TO CALL BACK LATER CM TO FOLLOW. Addendum: 01/02/20 at 1135 by Yeimi Knott CM DC PLANNING: SPOKE WITH PATIENT'S SON SOURAV, EXPLAINED WE ARE TRYING OUR BEST TO GET HER TO THE CONTRACTED FACILITIES, EXPLAINED [facility] HAS NO ICU BEDS , STILL WAITING FOR [facility] AND [facility] AND ALSO REQUESTING THE INSURANCE TO PROVIDE THE REBECCA FOR [facility] BUT PT'S SON SEEMS VERY UPSET AND STATED WE ARE NOT TRYING HARD TO FIND HOSPITALS . I RECOMMEND TO CALL THE INSURANCE AND TO ASK REBECCA FOR HOSPITALS NOT [facility] AND TO CALL [facility] .PT SON SOURAV AGREED TO CALL THE INSURANCE. CM TO FOLLOW Addendum: 01/02/20 at 1144 by Yeimi Knott CM DC PLANNING: RECEIVED A CALL FROM VANDANA AT [facility] ADMITTING OFFICE , REQUESTING THE AUTH# .PROVIDE THE AUTH # [id number] AND THE CONTACT NUMBER OF JOSE AT [facility] . RECEIVED A CALL FROM JOSE DEUTSCH STATED SPOKE WITH VANDANA PROVIDED AUTH # AND WHO EVER CALLS FIRST WILL SEND PATIENT. CM TO FOLLOW Addendum: 01/02/20 at 1356 by Yeimi Knott CM DC PLANNING: I WAS CALLED TO ICU TO TALK TO PT'S SON. SOURAV WAS ON THE PHONE WITH THE CELL STRIPPER NAME APRIL , PT WAS ASKING TO GET THE REBECCA FOR [facility] PER APRIL SHE SPOKE WITH THE OUTBOUND TELEMARKETING REPRESENTATIVE AND ALLOW HIM TO SUBMIT THE REBECCA FROM [facility] I WAS ASKED HIM TO TALK TO THE OUTBOUND TELEMARKETING REPRESENTATIVE OR THE CM , APRIL PUT HIM ON HOLD FOR A LONG TIME AND STATED THEY ARE NOT AVAILABLE AT THIS TIME AND ASKING THE PHONE NUMBER TO CALL HIM BACK OR SUBMIT THE AUTH REQUEST TO [phone]. SOURAV CALLED [facility] ASKING FOR TRANSFER CENTER ,THEY DIDN'T ALLOW HIM UNLESS THE MORGUE KEEPER WAS PRESENT. SINCE I WAS THERE I SPOKE WITH TANMAY TRANSFER [facility] STATED THEY ARE NOT ABLE TO GIVE THE REBECCA AT THIS TIME BECAUSE OF LONGER WAIT FOR ICU BED THEY ARE NOT ACCEPTING AND PATIENT FROM OUT SIDE . TANMAY ANSWERED ALL THE QUESTION HE HAD AND TO FOLLOW THEIR PROTOCOL. SOURAV SEEMS TO UNDERSTAND AND STATED CALLING OTHER HOSPITALS. I PROVIDED HIM [facility], [facility] AND [facility]. CM TO FOLLOW. Addendum: 01/02/20 at 1534 by Yeimi Knott CM DC PLANNING RECEIVED A CALL FROM [facility] [phone] SPOKE WITH ELI STATED SHE NEEDED OUR DR TO TALK TO REHAB TRAINER DR HERNANDEZ AT [phone] MELCHOR SPOKE WITH DR HERNANDEZ AND ACCEPTED PT. CALLED BACK ELI BED CONTROL NOTIFIED HER WE HAVE ACCEPTED HOSPITALIST DR DOMINIQUE AND RN MANAGER DR HERNANDEZ PER ELI NO ICU BED AVAILABLE AT THIS TIME AND WILL CALL BACK WHEN BED AVAILABLE. CM TO FOLLOW Addendum: 01/02/20 at 1736 by Yeimi Knott CM DC PLANNING RECEIVED A CALL FROM [facility] [phone] , ACCEPTED PATIENT ACCEPTING DR HERNANDEZ REHAB TRAINER AND DR DOMINIQUE HOSPITALIST. PT CAN GO TO ROOM 3300 BED 31 # TO GIVE REPORT [phone] . ARRANGED TRANSPORT WITH [facility] [phone]. RESERVATION # [id number] NOTIFIED [place] CHARGE NURSE TO CALL THE ETA TIME TO [phone] . NOTIFIED PT'S DAUGHTER SHANTI AND SON SOURAV AGREED FOR THE TRANSFER SHELL WILL BE HERE TO GO WITH THE MOTHER I ASKED TRANSPORT ALLOWED ONE PERSON TO GO WITH HER. Addendum: 01/03/20 at 1027 by Yeimi Knott CM DC PLANNING: RECEIVED A CALL FROM [facility] SPOKE WITH LIN , ACCEPTED PATIENT CAN GO TO ICU BED 3 #TO GIVE REPORT [phone] [address] [facility], [id number] ARRANGED TRANSPORT WITH [facility] JUICE MIXER TIME WITH IN ONE HR NOTIFIED PT'S SON NONA ICU CHARGE NURSE. Addendum: 01/03/20 at 1209 by Yeimi Knott CM DC PLANNING: RECEIVED A CALL FROM [facility] GET DELEON STATED NO ONE CONTACTED HIM AND HAS A QUESTION REGARDING THE DAILY METH USE AND PROVIDED DR BARAHONA'S CELL PHONE [phone] ROTH CALLED AND LEFT A MESSAGE PROVIDE DR BARAHONA'S CELL PHONE TO DR HOLDER . PER PANCHO BARAHONA IS IN SURGERY. THE UPDATED CLINICAL SUMMARY SENT TO PANCHO DEUTSCH. UPDATED THE SITUATION TO PT'S SON SOURAV AND SHANTI DAUGHTER. PER SON REQUEST FAXED TO [facility].GET TO FOLLOW Addendum: 01/03/20 at 1317 by Yeimi Knott CM DC PLANNING: RECEIVED A CALL FROM [facility] BED CONTROL SPOKE WITH LIN, DR BARAHONA IS ACCEPTING PATIENT AND PT CAN GO TO ICU BED 3 AND ARRANGED TRANSPORT WITH [facility] THE ETA WITH IN 3 HOURS . NOTIFIED NATHAN POWELL CM TO FOLLOW . Addendum: 01/03/20 at 1523 by Chelsy Jade CM RECEIVED A CALL FROM [facility] STATING THAT THEY ARE REQUIRING THE TRANSPORT AUTH FOR TODAY'S TRANSPORT. CONTACTED GET GARCIA AND INFORMED HER OF THE SITUATION. SHE STATED TO CALL [facility] OR IF I FIND AN AMBULANCE WHO IS WILLING ACCEPT AND GET PAID MEDICAL RATE. CONTACTED [facility], ABLE TO SPEAK TO GUNNAR, SHE GATHERED ALL THE INFORMATION. I REQUESTED TO HER TO CALL ME BACK FOR THE ETA. I ALSO ASKED HER THAT WE ARRANGED TRANSPORT WITH [facility] AND THEY ARE REQUIRING AUTH. SHE STATED SHE COULD NOT GUARANTEE IF IT WILL BE ASSIGNED TO [facility]. THOMAS GOMEZ [facility] MADE AWARE. SHE STATED THEY ARE THE ONLY AMBULANCE SERVICES IN THE AREA. SHE ALSO INFORMED ME THAT WE MIGHT GET A BILL FOR THE SERVICES IF INSURANCE WILL DENY HOWEVER THEY WILL BILL THE INSURANCE FIRST. PROGRESS DEVELOPER ABDIFATAH MADE AWARE. Addendum: 01/03/20 at 1535 by Chelsy Jade CM CALL REF NUMBER FOR TRANSPORT [id number]. Addendum: 01/03/20 at 1626 by Chelsy Jade CM CONTACTED THOMAS GOMEZ [facility], SHE STATED WE ARE GOOD TO GO. SHE WAS ABLE TO SPEAK TO YASMIN FROM [facility] AND SHE PROVIDED THEM WITH THE AUTH.
[2019-12-31] MEDS ORDERED: PIPE1PDS26 IV (10:29)
[2019-12-31] MEDS ORDERED: VANC1PLA7 IV (10:29)
--- NOTE | 2019-12-31 12:04 | NUR ---
CAME IN TO CHECK PT, UPDATED PM SHIFT NURSE WAS UNABLE TO INSERT OG TUBE OR NG TUBE. PER DR. WHITMORE, TRY ONE MORE TIME, IF STILL CAN NOT ADVANCE, CALL RESIDENT, THEN ORDER TPN. TRIED TO INSERT NG TUBE, UNABLE TO ADVANCE WHEN GET TO PT'S THROAT. NOTIFIED DR. MELCHOR. Addendum: 12/31/19 at 1751 by Laci Clayton RN DR. WHITMORE STATED HE IS FINE WITH PT O2 SATS BETWEEN 88%-90%.
[2019-12-31] MEDS ORDERED: methylPREDNISolone SS 125 MG/2 ML VIAL ONE (12:16)
--- NOTE | 2019-12-31 12:37 | NUR ---
PT STATED SHE WANTS TO GO HOME. EXPLAINED TO PT SHE NEEDS ONE MORE DAY MONITORING PER MD. PT'S MOTHER AT BEDSIDE. Addendum: 12/31/19 at 1644 by Laci Clayton RN WRONG PT.
--- NOTE | 2019-12-31 12:39 | NUR ---
Machinery Mover Note: SW attempted to conduct assessment with patient but patient was intubated. SW attempted ton contact child, Skip Wan, but she was unable to be contacted. SW will follow up to complete assessment.
--- NOTE | 2019-12-31 13:12 | NUR ---
12/31/19 RD INITIAL ASSESSMENT COMPLETED PLEASE REFER TO NUTRITION ASSESSMENT UNDER CARE ACTIVITY FOR ESTIMATED NUTRITIONAL NEEDS. 1. CONTINUE NPO MEDICALLY TOLERATED 2. RECOMMEND TUBE FEEDING WITH VITAL @ 65 ML/HR X 24 HR. -THIS WILL PROVIDE 1872 KCAL, 117 GRAMS PROTEIN, 1265 ML WATER. 3. RECOMMEND 100 ML FWF Q4H. 4. IF PATIENT IS UNABLE TO RECEIVE ENTERAL NUTRITION, CONSIDER TPN D/T OBSTRUCTION AT THE THROAT D/T EPIGLOTTITIS 5. RD TO FOLLOW-UP 2-3 DAYS, HIGH RISK NITIN LORENZANA RD
[2019-12-31] MEDS ORDERED: TPN PER PHARMACY MC PRN (13:20)
--- NOTE | 2019-12-31 14:30 | NUR ---
PT AGITATED, TRYING TO REACH HER HANDS TO HER MOUTH TO REMOVE HER TUBE, EXPLAINED TO PT AND INCREASED FENTANYL TO 1 MCG/KG/HR=11.92 CC/HR.
--- NOTE | 2019-12-31 14:50 | NUR ---
PT STILL AGITATED, REORIENTED PT, EXPLAINED TO PT SHE IS IN HOSPITAL. INCREASED VERSED FROM 3 MG/HR TO 4 MG/HR.
--- NOTE | 2019-12-31 15:00 | NUR ---
PT RESTING IN BED. NOT AGITATED ANYMORE. NO S/S OF RESPIRATORY DISTRESS NOTED. HR 65S.
--- NOTE | 2019-12-31 16:30 | NUR ---
PT'S FAMILY CHANGED THEIR MIND, THEY AGREED TO TRANSFER PT TO [facility] DUE TO [place] WILL LOCKDOWN. CALLED [facility] ST[facility]ER [facility] AND [employer] MAK[facility] . EXPLAINED TO PT'S TWO DAUGHTERS. PT'S DAUGHTER ASKED IS IT POSSIBLE TO TRANSFER [place], EXPLAINED IT DEPENDS ON [facility], ONCE THEY GIVE US BED, WE CAN TRANSFER.
--- NOTE | 2019-12-31 18:03 | NUR ---
[facility] BUSINESS DEVELOPMENT COORDINATOR, JARROD CALLED AND INFORMED THAT THEY ARE NOT CAPABLE ACCEPTING PATIENT AT THIS TIME.
--- NOTE | 2019-12-31 19:30 | NUR ---
RECEIVED CHANGE OF SHIFT REPORT FROM DAY SHIFT RN. PT IS SEDATED RASS -3 ACHIEVED PER MD ORDERS. PERRLA. AFEBRILE. FLACC 0. SINUS RHYTHM ON MONITOR. +S1, S2 UPON AUSCULTATION. CAP REFILL < 3 SECONDS. PULSES PALPABLE TO ALL EXTREMITIES. ETT TO VENT W SETTINGS FIO2 30%, VT 500, RR 14, PEEP 5. LUNGS BILATERALLY DIMINISHED. ABDOMEN ROUND, SOFT, NON-DISTENDED. BOWEL SOUNDS ACTIVE. PERIPHERAL IVS: 20G LEFT AC, PICC TO RIGHT UPPER ARM INFUSING VERSED @ 3MG/HR, FENTANYL @ 11.92 ML/HR, 1/2 D5 @ 120 ML/HR. (DRY WEIGHT 125.19 KG). KINSEY CATHETER IN PLACE. DRAINING LIGHT STRAW-COLORED URINE WITH SOME SEDIMENT TO GRAVITY. SKIN WARM, DRY AND INTACT. HOB @ 30 DEGREES. BED LOWEST POSITION, LOCKED. CALL LIGHT WITHIN REACH. SOFT-WRIST RESTRAINTS IN PLACE. NO INJURIES NOTED. CIRCULATION CHECK WNL. WILL CONTINUE TO MONITOR.
--- NOTE | 2019-12-31 20:25 | NUR ---
Called [facility] for available bed and left a message
--- NOTE | 2019-12-31 20:29 | NUR ---
Called [facility], HS stated that ENT surgeon declined for acceptance
--- NOTE | 2019-12-31 20:30 | NUR ---
PHONE CALL TO [facility]; SPOKE WITH NITIN; SHE SAID THE PHYSICIANS HAVE NOT DECIDED TO ACCEPT THE PT AT THIS TIME;PER NITIN, THEY ALREADY ASKED FOR THE CD TO BE SENT VIA [employer] MACHINE OPERATOR AND DR BLANCA HAS TO REVIEW THE CD. DR COSBY AND MICHAEL ,[employer] SALES MANAGER AWARE Addendum: 12/31/19 at 2100 by Rhoda Burton RN PHONE # [phone]
--- NOTE | 2019-12-31 20:51 | NUR ---
Called [facility] [phone], HS stated that they never received any paper in am. Asked why pt wanted to be transfer, told the diagnosis, stated no EMT MD and stated that the number is [facility] not [facility]
--- NOTE | 2019-12-31 23:30 | NUR ---
PHONE CALL FROM SHANTI GARDINER; PTS DAUGHTER, ASKING WHEN PT WILL BE TRANSFERRED TO ANOTHER HOSPITAL AND WHAT ARE WE DOING ABOUT THE TRANSFER; EXPLAINED TO SHANTI THAT DELIVERY ANALYST ALREADY CALLED [facility] AND THE PHYSICIANS THERE HAVE NOT DECIDED TO ACCEPT THE PT AT THIS TIME.QUESTIONS ANSWERED.UPDATED ON PTS PRESENT CONDITION.
[2020-01-01] VITALS (98 sets, daily range): BP systolic 92–143; BP diastolic 38–93
--- NOTE | 2020-01-01 | NUR ---
REPOSITIONED PT WITH PRESSURE AREAS OFFLOADED. CONTINUES @ RASS-3 PER MD ORDERS. CATH CARE PROVIDED. SAFETY PRECAUTIONS REMAIN IN PLACE WITH BED LOW AND LOCKED.
--- NOTE | 2020-01-01 02:00 | NUR ---
VAP ORAL CARE PROVIDED. REPOSITIONED. SAFETY PRECAUTIONS IN PLACE. WILL CONT TO MONITOR
[2020-01-01] MEDS ORDERED: fentaNYL 0.05 MG/ML VIAL ONE (03:51)
--- NOTE | 2020-01-01 04:00 | NUR ---
BED BATH GIVEN WITH CATH CARE. VAP ORAL CARE PROVIDED. REPOSITIONED TO REDUCE PRESSURE AREAS. SAFETY PRECAUTIONS IN PLACE. WILL CONT TO MONITOR.
[2020-01-01] MEDS: fentaNYL 1 MG in NACL 0.9% 80 ML IV PRN ×4 (04:06→22:39)
[2020-01-01 05:20] LABS: BASOPHILS % (AUTO) 0.1 % (0.0-2.0); HEMATOCRIT 31.7 % (36-48); LYMPHOCYTES # (AUTO) 0.7 K/uL (2.5-16.5); LYMPHOCYTES % (AUTO) 4.7 % (20.5-51.1); MEAN CORPUSCULAR HEMOGLOBIN 26 pg (27-31); MEAN CORPUSCULAR HGB CONC 31 g/dL (33-37); MEAN CORPUSCULAR VOLUME 82.6 fL (80-94); MONOCYTES # (AUTO) 0.4 K/uL (0.8-1.0); MONOCYTES % (AUTO) 3.1 % (1.7-9.3); NEUTROPHILS % (AUTO) 92.1 % (42.2-75.2); PLATELET COUNT (AUTO) 332 K/uL (140-450); RED BLOOD CELL COUNT(AUTO) 3.84 MIL/uL (4.20-5.40); RED CELL DISTRIBUTION WIDTH 16.5 % (11.6-13.7); WHITE BLOOD COUNT (AUTO) 14.1 K/uL (4.8-10.8)
[2020-01-01] MEDS: PIPERACILLIN/TAZOBACTAM 3.375 GM in DEXTROSE 5% 50 ML IV SCH ×3 (05:37→21:22)
[2020-01-01 05:51] LABS: ANION GAP 8.8 (8-16); CARBON DIOXIDE 29.6 mmol/L (21-32); POTASSIUM 4.4 mmol/L (3.5-5.1)
[2020-01-01 05:58] LABS: MAGNESIUM 1.9 mg/dL (1.8-2.4); PHOSPHORUS 4.2 mg/dL (2.5-4.9)
[2020-01-01] MEDS: methylPREDNISolone SS 40 MG/ML VIAL IVP SCH ×3 (06:21→21:21)
[2020-01-01] MEDS: ALBUTEROL SULFATE/IPRATROPIU 3 ML SOL IH SCH ×3 (06:34→20:06)
--- NOTE | 2020-01-01 07:17 | NUR ---
REPORT GIVEN TO DAY SHIFT RN FOR CONTINUITY OF CARE.
--- NOTE | 2020-01-01 07:30 | NUR ---
RECEIVED SHIFT REPORT FROM SLURRY TANK TENDER RN. PT IS SEDATED. BEDSIDE MONITOR SHOWS SR 60S. S1, S2 HEARD. CAP REFILL < 3 SECONDS. ETT TO VENT W SETTINGS A/C VC FIO2 =35%, VT 500, RR 14, PEEP 5.NO SIGNS OF ACUTE DISTRESS NOTED. PERIPHERAL IV 20G TO LEFT AC RUNNING 1/2 D5 AT 120 CC/HR.PICC LINE TO RIGHT UPPER ARM RUNNING VERSED AT 3 MG/HR AND FENTANYL DRIP AT 1.5MCG/KG/HR =17.88 CC/HR BASED ON DRY WEIGHT 119 KG. RASS -3. ABDOMEN ROUND,LARGE, SOFT, NONTENDER. BOWEL SOUNDS PRESENTS X 4 QUADRANTS . KINSEY CATHETER IN PLACE DRAINING LIGHT TREVOR URINE TO GRAVITY. SKIN INTACT, DRY, WARM TO TOUCH. REDNESS TO SACRAL AREA NOTED, HOB ELEVATED AT 30 DEGREES. BED IN LOWEST POSITION. CALL LIGHT WITHIN REACH. SOFT WRIST RESTRAINTS IN PLACE. CIRCULATION CHECKED WELL. WILL CONTINUE TO MONITOR.
[2020-01-01] MEDS: DEXT 5% / NACL 0.45% 1,000 ML IV SCH ×3 (07:39→21:00)
--- NOTE | 2020-01-01 08:00 | NUR ---
TURNED AND REPOSITIONED PT. ORAL CARE AND SANAM CARE GIVEN. OFF LOADING PRESSURE AREA. NOTIFIED DR. JOYNER'S GROUP PT HAS A SMALL BRUISE TO LEFT LITTLE TOE AREA. PER DR. JOYNER MAYBE IT IS FROM LEVOPHED DRIP WHICH WAS GIVEN TO PT BEFORE. JUST KEEP MONITORING.
[2020-01-01] MEDS: PANTOPRAZOLE 40 MG INJ VIAL IVP SCH (08:30)
[2020-01-01] MEDS: VANCOMYCIN 1,000 MG in DEXTROSE 5% 250 ML IV SCH ×2 (08:30→16:29)
--- NOTE | 2020-01-01 09:31 | NUR ---
Vallez Filter Operator Note: Basic Screen: Yes High Risk DC Screen Iantha: BARBARA GARDINER Home Relationship: DAUGHTER Pre-Admission Living Arrangements: Lives with Other Prior ADL Independent Current Home Health Name/Tel: N/A Current DME/02 Name/Tel: N/A Current Hospice Name/Tel: N/A Current Dialysis Name/Tel: N/A Healthcare Decision Maker: Patient Advance Directive No Physician Orders for Life Sustaining Treatment Form No Patient/Family Have Educational Needs No Discipline: Case Mgt/Social Svcs Tentative Discharge Plan/Destination: Other Other: [facility] Will require assistance post discharge: No Referred to Communications Manager: No Tentative Discharge Plan Summary: Patient is a 59-year-old female admitted for epiglotitis. Patient has PMHX of obesity, tobacco abuse, methamphetamine abuse, choleithiasis s/p cholecystectomy, and stress incontinence. Patient was admitted from home where she lives with her daughter, Barbara. JUVENCIO contacted Barbara Gardiner to verify demographics [phone]. Per Barbara, patient is independent with ADLs at baseline and is alert/oriented. JUVENCIO offered to mail substance abuse resources, but Barbara declined. Barbara inquired about status of transferring patient to [facility]. JUVENCIO transferred call to [facility]. Tentative discharge plan is for patient to be transferred to [facility]. No further needs identified. Signature: YRIS Brizuela Date: Jan 01, 2020 Time: 09:30
[2020-01-01] MEDS: NICOTINE TRANSD SYS 14 MG/24 HR PATCH TD SCH (09:56)
[2020-01-01] MEDS ORDERED: PROBIOTIC SCREEN 1 EA MISC MC PRN (11:00)
--- NOTE | 2020-01-01 11:05 | NUR ---
NOTIFIED PT WEIGHT TO DR. MELCHOR, ALSO UPDATED PT HAS SOME EDEMA TO BOTH UPPER EXTREMITIES, DR. MELCHOR STATED DECREASE IV FLUID FROM 120 CC/HR= 60 CC/HR.
--- NOTE | 2020-01-01 12:20 | NUR ---
Spoke to Taco at the transfer center in [facility] on 12/31/19 at 1600 and stated that she is looking for an ENT doctor and for the rehab trainer to take the patient. will call back when she gets an ENT. information was related to charge nurse and to the physical therapy supervisor. daughter was also aware.
--- NOTE | 2020-01-01 12:30 | NUR ---
ORAL CARE GIVEN. SUCTIONED PT WITH MODERATE AMOUNT OF SECRETION. CLEAN PT'S EYES. TURNED AND REPOSITIONED PT.
[2020-01-01] MEDS: MIDAZOLAM MDV 50 MG in NACL 0.9% 40 ML IV PRN (12:55)
--- NOTE | 2020-01-01 13:05 | NUR ---
Called Taco at [facility] transfer center and she stated that the patient need to go [facility] because the ENT at [place] Dr. Pearson said it needs more than just draining an abscess. Informed Dr. Vicente.
--- NOTE | 2020-01-01 13:27 | NUR ---
LEROY GARDINER AT BEDSIDE , ALL THE RINGS AND NECKLACE HANDED TO LEROY.
--- NOTE | 2020-01-01 15:04 | NUR ---
TOOK PT TO CT AT 1440, ACCOMPANIED WITH RT, RN AND TECH. NO INCIDENT.
--- NOTE | 2020-01-01 16:57 | NUR ---
Called the transfer center at [facility] spoke to Cherise [phone] Mandujano that Dr. Adhikari barn hand is willing to accept the patient but per Cherise no ICU bed and will call us when bed available.
--- NOTE | 2020-01-01 18:00 | NUR ---
TURNED AND REPOSITIONED PT, SUCTIONED PT WITH MODERATE AMOUNT OF SECRETION. PT TOLERATED WELL.
--- NOTE | 2020-01-01 19:15 | NUR ---
ENDORSED PT TO PM SHIFT RN.
--- NOTE | 2020-01-01 19:30 | NUR ---
RECEIVED CHANGE OF SHIFT REPORT FROM DAY SHIFT RN. PT IS SEDATED RASS -3 ACHIEVED PER MD ORDERS. PERRLA. AFEBRILE. FLACC 0. SINUS RHYTHM ON MONITOR. +S1, S2 UPON AUSCULTATION. CAP REFILL < 3 SECONDS. PULSES PALPABLE TO ALL EXTREMITIES. ETT TO VENT W SETTINGS FIO2 30%, VT 500, RR 14, PEEP 5. LUNGS BILATERALLY DIMINISHED. ABDOMEN ROUND, SOFT, NON-DISTENDED. BOWEL SOUNDS ACTIVE. PERIPHERAL IVS: 20G LEFT AC, PICC TO RIGHT UPPER ARM INFUSING VERSED @ 3MG/HR, FENTANYL @ 11.92 ML/HR, 1/2 D5 @ 60 ML/HR. (DRY WEIGHT 119 KG). KINSEY CATHETER IN PLACE. DRAINING LIGHT STRAW-COLORED URINE WITH SOME SEDIMENT TO GRAVITY. SKIN WARM, DRY AND INTACT. HOB @ 30 DEGREES. BED LOWEST POSITION, LOCKED. CALL LIGHT WITHIN REACH. SOFT-WRIST RESTRAINTS IN PLACE. CIRCULATION CHECK WNL.
[2020-01-01] MEDS ORDERED: MULTIVITAMIN-12 10 ML in DEXTROSE 50% 720 ML, AMINO ACIDS 8.5% 620 ML, FAT EMULSION 20%... IV SCH ×4 (20:00)
[2020-01-01] MEDS ORDERED: INSULIN LISPRO SLIDING SCALE 100 UNITS/ML VIAL SUBQ PRN (21:00)
--- NOTE | 2020-01-01 21:20 | NUR ---
CALLED [facility] [phone] TO FOLLOW UP BED AVAILABILITY, SPOKE WITH MARK AND HE STATED THAT PATIENT HAD BEEN ACCEPTED BY THEIR MICU TEAM ALREADY BUT PATIENT'S INSURANCE NEED TO GIVE AN APPROVAL FIRST BEFORE PATIENT WILL BE TRANSFERRED TO [facility]. CHECKED CM NOTES.
--- NOTE | 2020-01-01 22:19 | NUR ---
CALLED [facility] [phone] TO FOLLOW UP ON BED AVAILABILITY, PER LIA THEY ARE NOT GOING TO ACCEPT ANY OUT PATIENT AT THIS TIME AND TO CALL THEM AFTER 10 AM TOMORROW.
[2020-01-02] VITALS (105 sets, daily range): BP systolic 88–133; BP diastolic 42–100
[2020-01-02] MEDS: VANCOMYCIN 1,000 MG in DEXTROSE 5% 250 ML IV SCH ×3 (00:20→16:27)
[2020-01-02] MEDS: BLOOD GLUCOSE MONITORING 1 DEV DEV MC SCH ×4 (00:32→18:00)
[2020-01-02] MEDS: fentaNYL 1 MG in NACL 0.9% 80 ML IV PRN ×4 (05:15→22:54)
[2020-01-02] MEDS: MIDAZOLAM MDV 50 MG in NACL 0.9% 40 ML IV PRN ×2 (05:16→22:22)
[2020-01-02] MEDS: PIPERACILLIN/TAZOBACTAM 3.375 GM in DEXTROSE 5% 50 ML IV SCH ×3 (05:17→21:21)
[2020-01-02] MEDS: ALBUTEROL SULFATE/IPRATROPIU 3 ML SOL IH SCH ×3 (07:27→18:00)
--- NOTE | 2020-01-02 07:28 | NUR ---
RECEIVED ON A OceenSCAPE R860 VENTILATOR PLUGGED INTO RED OUTLET TOLERATING WELL WITHOUT ADVERSE RECATIONS NOTED TO AN ENDOTRACHEAL TUBE #7.5 SECURED AT 24cm WITH AN ANCHOR FAST CUFF PRESSURED CHECKED NOTED AMBU BAG NOTED AT BEDSIDE SEDATED RESPONSIVE TO PHYSICAL STIMULUS EQUAL CHEST RISE GOOD AERATION THROUGHOUT BILATERAL LUNG GARDUNO AIRWAY PATENT NO ENDOTRACHEAL SUCTION REQUIRED AT THIS TIME ROSS FURNACE OPERATOR TO MONITOR
--- NOTE | 2020-01-02 07:30 | NUR ---
RECEIVED REPORT FROM DIRECTOR OF AUTOMATION RN, PT SEDATED RASS -3, AROUSABLE TO VOICE, PERRLA, PT IS SINUS BRADYCARDIA 57, S1 AND S2 HEARD PULSES PALPABLE BILATERALLY UPPER AND LOWER EXTREMITIES, PT ETT TO VENT FIO2 35 VT 500 RR 14 PEEP 5, LUNG SOUNDS COARSE UPON AUSCULTATION, PT ABDOMEN ROUND AND NONTENDER WITH ACTIVE BOWEL SOUNDS ALL QUADRANTS, PICC LINE IN PLACE RIGHT UPPER ARM INFUSING 3 MG/HR VERSED, 1.5 MCG/KG/HR FENTANYL, 1/2 D5 60 ML/HR; KINSEY CATHETER IN PLACE URINE CLEAR AND YELLOW, SKIN INTACT PT WARM AND DRY, HOB AT 30 PER PROTOCOL, AND IN LOWEST POSITION.
--- NOTE | 2020-01-02 08:00 | NUR ---
PT RECEIVED ORAL CARE, AND WAS REPOSITIONED, RESIDENTS MADE ROUNDS, SON SITTING AT BEDSIDE
[2020-01-02] MEDS: PANTOPRAZOLE 40 MG INJ VIAL IVP SCH (08:30)
[2020-01-02 08:34] LABS: BASOPHILS % (AUTO) 0.4 % (0.0-2.0); HEMATOCRIT 31.5 % (36-48); LYMPHOCYTES # (AUTO) 0.5 K/uL (2.5-16.5); MEAN CORPUSCULAR HEMOGLOBIN 26 pg (27-31); MEAN CORPUSCULAR HGB CONC 32 g/dL (33-37); MEAN CORPUSCULAR VOLUME 82.6 fL (80-94); MONOCYTES # (AUTO) 0.4 K/uL (0.8-1.0); MONOCYTES % (AUTO) 4.4 % (1.7-9.3); NEUTROPHILS # (AUTO) 9.3 K/uL (1.8-7.7); NEUTROPHILS % (AUTO) 90.2 % (42.2-75.2); PLATELET COUNT (AUTO) 333 K/uL (140-450); RED BLOOD CELL COUNT(AUTO) 3.82 MIL/uL (4.20-5.40); RED CELL DISTRIBUTION WIDTH 16.7 % (11.6-13.7); WHITE BLOOD COUNT (AUTO) 10.3 K/uL (4.8-10.8)
[2020-01-02 08:37] LABS: CARBON DIOXIDE 31.6 mmol/L (21-32); CREATININE 0.9 mg/dL (0.6-1.3); MAGNESIUM 2.1 mg/dL (1.8-2.4); PHOSPHORUS 4.1 mg/dL (2.5-4.9); POTASSIUM 4.6 mmol/L (3.5-5.1)
[2020-01-02] MEDS: NICOTINE TRANSD SYS 14 MG/24 HR PATCH TD SCH (08:37)
--- NOTE | 2020-01-02 10:19 | NUR ---
RESTING WELL NO EVIDENCE OF PULMONARY DISTRESS NOTED GOOD CHEST RISE AND AERATION THROUGHOUT BILATERAL LUNG GARDUNO AIRWAY PATENT VACATION SEDATION AT 1022 MARINA/SHERRY
--- NOTE | 2020-01-02 10:24 | NUR ---
SEDATION VACATION STARTED RESPIRATORY THERAPIST AT BEDSIDE
--- NOTE | 2020-01-02 10:30 | NUR ---
PT BECAME AGITATED PLACED BACK ON SEDATION
[2020-01-02] MEDS ORDERED: AMINO ACIDS IV SCH ×4 (10:55)
[2020-01-02] MEDS ORDERED: [UNRECOGNIZED DRUG - OTHER] IV SCH ×4 (10:55)
[2020-01-02] MEDS ORDERED: DEXTROSE IV SCH ×4 (10:55)
[2020-01-02] MEDS ORDERED: MULTIVITAMIN IV SCH ×4 (10:55)
--- NOTE | 2020-01-02 12:27 | NUR ---
01/02/20 RD FOLLOW UP COMPLETED PLEASE REFER TO NUTRITION ASSESSMENT UNDER CARE ACTIVITY FOR ESTIMATED NUTRITIONAL NEEDS. 1. RECOMMEND GRADUALLY INCREASING TPN TO MEET AT LEAST 75% OF ESTIMATED NUTRIENT NEEDS UNDER DOCTOR AND PHARMACISTS DISCRETION -CURRENT TPN D10%, AA4.25%, LIPIDS 100 ML @ 60 ML/HR IS PROVIDING 52% KCAL NEEDS AND 64% OF PROTEIN NEEDS 2. RD TO FOLLOW-UP 2-3 DAYS, HIGH RISK NITIN LORENZANA, RD
--- NOTE | 2020-01-02 12:31 | NUR ---
SCREEN FOR LOW ELOINA SCALE AT RISK, CONTINUE TO FOLLOW PRESSURE ULCER PREVENTION INTERVENTIONS. -TURN AND REPOSITION PATIENT Q 2H -ASSESS AND MONITOR SKIN CONDITION DURING POSITION CHANGE -OFFLOAD BILATERAL HEELS BY PLACING PILLOWS UNDER CALVES AT ALL TIMES, UNLESS OTHERWISE CONTRAINDICATED -PRESSURE REDISTRIBUTION BY PLACING PILLOWS AND OFFLOADING SACRALCOCCYX -KEEP SKIN CLEAN AND DRY AT ALL TIMES.
[2020-01-02] MEDS: DEXT 5% / NACL 0.45% 1,000 ML IV SCH (13:40)
[2020-01-02] MEDS ORDERED: LORazepam 2 MG/ML VIAL IVP PRN (14:05)
--- NOTE | 2020-01-02 14:42 | NUR ---
PT DAUGHTER AT BEDSIDE, PT DAUGHTER AGITATED AND WANTS TO TALK WITH CASE MANAGEMENT TO TRANSFER PT TO A DIFFERENT FACILITY, SHOWED PT DAUGHTER CASE MANAGEMENTS NOTES ABOUT TRANSFER, PT DAUGHTER UNHAPPY WITH RESULTS CALLED CASE MANAGEMENT
--- NOTE | 2020-01-02 16:30 | NUR ---
RESTING WELL NO RESPIRATORY DISTRESS NOTED ENDOTRACHEAL SUCTION FOR LARGE THICK DARK RED/BROWN SECRETIONS WITH FEW SMALL PLUGS AIRWAY PATENT
--- NOTE | 2020-01-02 17:48 | NUR ---
CALLED [facility] , GAVE REPORT TO ANTONELLA POWELL,
--- NOTE | 2020-01-02 17:48 | NUR ---
STABLE GOOD CHEST RISE ENDOTRACHEAL SUCTION FOR MODERATE THICK DARK RED/BROWN SECRETIONS AIRWAY PATENT
--- NOTE | 2020-01-02 17:53 | NUR ---
YASMIN FROM [facility] CALLED AND VERIFIED THAT [facility] WILL NOT BE ABLE TO COME UNTIL 3 AM OR 4 AM TO TAKE PT. TO [facility]. ASKED TO FAX MEDICAL NECESSITY FORM.
--- NOTE | 2020-01-02 18:00 | NUR ---
CALLED PT SON INFORMED HIM OF PT TRANSFER
--- NOTE | 2020-01-02 18:05 | NUR ---
SPOKE TO KATEY SAMUELS COORDINATOR FOR [facility] [phone] RE: BREANNA PT. IRON POURER FROM HERE BETWEEN 3AM TO 4AM TOMORROW.
--- NOTE | 2020-01-02 18:14 | NUR ---
PT AGITATED, ORAL SUCTIONED PT, PT REMAINED AGITATED, INCREASED VERSED 3 ML/HR TO 4 ML/HR, PT CALMED DOWN AND FELL ASLEEP
--- NOTE | 2020-01-02 18:15 | NUR ---
NOTIFIED PT'S DAUGHTER SHANTI PT WILL NOT BE PICKED UP UNTIL BAG BUNDLER 3-4 AM DUE TO [facility] IS BUSY.
--- NOTE | 2020-01-02 18:50 | NUR ---
[facility] CALLED. THEY WILL TRANSPORT PT. TO [facility] BUT WILL NOT BE ABLE TO LIMITED RADIOLOGY TECHNICIAN PT. UNTIL 3AM 0R 4AM SINCE THEY DO NOT HAVE A NURSE AVAILABLE TO GO WITH PT. DURING TRANSPORT. Addendum: 01/02/20 at 1931 by Corinne Caal RN WRONG TIME 1750 N0T 1850
--- NOTE | 2020-01-02 19:11 | NUR ---
MEDICAL NECESSITY FORM SIGNED BY DR. LANDAVERDE. FAXED TO [facility].
--- NOTE | 2020-01-02 19:18 | NUR ---
RECEIVED REPORT FROM AM SHIFT. PT IS INTUBATED WITH ETT SIZE 7.5 AT 24CM @ TEETH LEVEL AND SECURED WITH ANCHOR-FAST. PT ON VENT SETTINGS ORDERED, VENT PLUGGED IN RED OUTLET, ALARMS SET AND AUDIBLE, BVM AT BEDSIDE, HOB > 30 DEGREES. PT IS IN NO APPARENT RESPIRATORY DISTRESS AT THIS TIME: HR 64, RR 15, SPO2 93% ON FiO2 OF 35%, AND A COARSE BILATERAL BREATH SOUNDS. SX SCANT AMOUNT OF PINK TINGED SECRETIONS FROM ETT. HHN TX GIVEN ORDERED WITH NO ADVERSE REACTION. WILL CONTINUE TO MONITOR PT.
--- NOTE | 2020-01-02 19:28 | NUR ---
GAVE BEDSIDE REPORT TO ORAL SURGERY TECHNICIAN RN
--- NOTE | 2020-01-02 19:30 | NUR ---
REPORT GIVEN BY MARINA POWELL AM SHIFT. PT IS INTUBATED WITH ETT SIZE 7.5 AT 24CM @ TEETH LEVEL AND SECURED WITH ANCHOR-FAST. PT ON ETT TO VENT AC/VC TV 500,RATE 14,FIO2 35 AND PEEP OF 5. HOB UP 30 -45 DEGREES. NO SOB, NO S/S OF RESP DISTRESS.SR ON MONITOR.NO S/S OF PAIN AT THIS TIME. PICC LINE TO [place] DOUBLE LUMEN INTACT WELL. PT CONT ON SEDATION VERSED AT 4 MG/HR AND FENTANYL AT 1.5 MCG/KG/HR WITH RASS -3. DRY WT 119 KG. IV D 5 IN 1/2 NS AT 60CC/HR. CONT ON TPN AT 60 CC/HR AND INCREASE TO 80 CC/HR WITH NEW BAG AT 8 PM.SKIN WARM TO TOUCH.SKIN INTACT. ABD SOFT NON DISTENDED. F/C IN PLACE WITH YELLOW CLEAR URINE. GENTLE CARE GIVEN. KEPT CLEAN AND DRY.
--- NOTE | 2020-01-02 22:00 | NUR ---
MK POWELL FROM [facility] CALLED AND CONFIRM TO HER PT WILL COME ON 01/03/20 AT 2-3 AM PICK. PER MK REPORT WAS GIVEN ALREADY BY AM SHIFT.
--- NOTE | 2020-01-02 22:40 | NUR ---
CHRISSY OPHTHALMIC AIDE FROM [facility] CALLED AND INFORM THAT THEY CANNOT ACCEPT PT AT THIS TIME, SHE SAID PT NEED TO SEEN BY ENT FIRST. MADE CHRISSY AWARE THE REASON FOR TRANSFER WAS D/T NEED EVALUATION BY ENT.PER CHRISSY AND MK POWELL.THEY CANNOT ACCEPT THE PT PER INTENSIVE. CHIU SUGGEST TO CALL ENT. MADE AWARE THE SITUATION. DR NG CALLED AND ACCORDING TO HIM THAT THEY WILL NOT ACCEPT PT. ALSO SPEAK WITH CHRISSY AND EXPLAIN WHY PT WAS NEED HIGHER CARE D/T ENT TO EVAL [facility]. THEY STILL SAYING WILL NOT ACCEPT PT. [facility] CANCELLED. ABDIFATAH MOSER DAUGHTER MADE AWARE THE SITUATION AND NO TRANSFER AT THIS TIME.
--- NOTE | 2020-01-02 22:50 | NUR ---
DR TAPAN SEGAL,PT CONDITION UPDATED TO .
[2020-01-03] VITALS (75 sets, daily range): BP systolic 90–114; BP diastolic 48–97
[2020-01-03] MEDS: VANCOMYCIN 1,000 MG in DEXTROSE 5% 250 ML IV SCH ×3 (00:23→15:23)
[2020-01-03] MEDS: BLOOD GLUCOSE MONITORING 1 DEV DEV MC SCH ×3 (00:23→12:06)
--- NOTE | 2020-01-03 00:40 | NUR ---
BLOOD SUGAR IS 137.NO COVERAGED NEEDED
--- NOTE | 2020-01-03 02:00 | NUR ---
PT SLEEP RASS -3
--- NOTE | 2020-01-03 04:30 | NUR ---
AM CARE GIVEN, BED BATH,ORAL CARE.AND F/C CARE MANUELITO WELL. KEPT CLEAN AND DRY,
[2020-01-03] MEDS: fentaNYL 1 MG in NACL 0.9% 80 ML IV PRN ×2 (05:50→12:30)
[2020-01-03 06:07] LABS: HEPATITIS A ANTIBODY IGM Negative (Negative); HEPATITIS B CORE AB TOTAL Negative (Negative); HEPATITIS B SURFACE ANTIBODY Non Reactive (.); HEPATITIS B SURFACE ANTIGEN Negative (Negative)
[2020-01-03 06:20] LABS: CARBON DIOXIDE 32.6 mmol/L (21-32); POTASSIUM 3.6 mmol/L (3.5-5.1)
[2020-01-03 06:27] LABS: BASOPHILS % (AUTO) 0.1 % (0.0-2.0); HEMATOCRIT 32.6 % (36-48); HEMOGLOBIN 10.2 g/dL (12.0-16.0); LYMPHOCYTES # (AUTO) 1.6 K/uL (2.5-16.5); LYMPHOCYTES % (AUTO) 19.1 % (20.5-51.1); MEAN CORPUSCULAR HEMOGLOBIN 26 pg (27-31); MEAN CORPUSCULAR HGB CONC 31 g/dL (33-37); MEAN CORPUSCULAR VOLUME 83.4 fL (80-94); MONOCYTES # (AUTO) 0.7 K/uL (0.8-1.0); MONOCYTES % (AUTO) 8.8 % (1.7-9.3); PLATELET COUNT (AUTO) 314 K/uL (140-450); RED BLOOD CELL COUNT(AUTO) 3.91 MIL/uL (4.20-5.40); WHITE BLOOD COUNT (AUTO) 8.4 K/uL (4.8-10.8)
[2020-01-03 06:29] LABS: MAGNESIUM 2.1 mg/dL (1.8-2.4); PHOSPHORUS 3.9 mg/dL (2.5-4.9)
[2020-01-03] MEDS: PIPERACILLIN/TAZOBACTAM 3.375 GM in DEXTROSE 5% 50 ML IV SCH ×2 (06:29→12:23)
--- NOTE | 2020-01-03 06:30 | NUR ---
BLOOD SUGAR 190 AND 2 UNITS INSULIN GIVEN
[2020-01-03] MEDS: ALBUTEROL SULFATE/IPRATROPIU 3 ML SOL IH SCH ×2 (06:50→14:34)
--- NOTE | 2020-01-03 07:15 | NUR ---
RECEIVED CHANGE OF SHIFT REPORT FROM TEA PLANTATION WORKER RN. PT IS SEDATED RASS -3. PERRLA. AFEBRILE. FLACC 0. NORMAL SINUS RHYTHM ON MONITOR. S1, S2 HEARD. CAP REFILL < 2 SECONDS. PULSES PALPABLE TO ALL EXTREMITIES. ETT TO VENT W SETTINGS: FIO2 35%, VT 500, RR 14, PEEP 5. LUNGS COARSE RONCHI BILATERALLY, DIMINISHED LOWER LOBES. ABDOMEN ROUND, SOFT, NONTENDER. BOWEL SOUNDS PRESENTS X 4 QUADRANTS. PICC LINE RIGHT UPPER ARM. ASYMPTOMATIC, PATENT, INTACT. PT RECEIVING FENTANYL DRIP @ 1.5 MG/KG/HR (DRY WEIGHT 119 KG). VERSED DRIP @ 5MG/HR RATE 5 ML/HR. TPN @ 80ML/HR.3IV FLUID D5 1/2 NS @ 60 MLS/HR. KINSEY CATHETER IN PLACE. DRAINING LIGHT TREVOR URINE TO GRAVITY. SKIN INTACT, DRY, COOL TO TOUCH. LEFT HAND EDETAMOUS +2 MM. HOB AT 30 DEGREES. BED IN LOWEST POSITION, LOCKED. CALL LIGHT WITHIN REACH. SOFT WRIST RESTRAINTS IN PLACE. NO SKIN BREAK NOTED. NO SIGNS OF ACUTE DISTRESS NOTED AT THIS TIME. WILL CONTINUE TO MONITOR.
--- NOTE | 2020-01-03 07:30 | NUR ---
PT ASLEEP. RASS - 3
--- NOTE | 2020-01-03 07:45 | NUR ---
RT AT BEDSIDE
--- NOTE | 2020-01-03 07:50 | NUR ---
RECEIVED ON A Promptu SystemsAPE R860 VENTILATOR PLUGGED INTO RED OUTLET TOLERATING WELL WITHOUT INCIDENT TO AN ENDOTRACHEAL TUBE #7.5 SECURED AT 24cm TEETH/GUM LINE CUFF PRESSURE CHECKED NOTED AMBU BAG NOTED AT BEDSIDE SEDATED RESTING COMFORTABLY GOOD CHEST RISE ENDOTRACHEAL SUCTION FOR MODERATED SCATTERED THICK DARK RED/BROWN SECRETIONS AIRWAY PATENT
--- NOTE | 2020-01-03 08:00 | NUR ---
ORAL CARE PROVIDED
[2020-01-03] MEDS: NICOTINE TRANSD SYS 14 MG/24 HR PATCH TD SCH (08:36)
[2020-01-03] MEDS: PANTOPRAZOLE 40 MG INJ VIAL IVP SCH (08:37)
--- NOTE | 2020-01-03 10:18 | NUR ---
STABLE SEDATED NO DISTRESS NOTED EQUAL CHEST RISE ENDOTRACHEAL SUCTION FOR SMALL THICK DARK BROWN/GREEN SECRETIONS AIRWAY PATENT Addendum: 01/03/20 at 1030 by Deangelo Álvarez RT SATURATION 98% ON FIO2 OF 35% TITRATED FIO2 TO 30% AWA/SEHRRY NOTIFIED
--- NOTE | 2020-01-03 10:20 | NUR ---
RECEIVED CALL FROM PANCHO, [facility] OF [facility]. QUESTIONS ANSWERED, INFO GIVEN ON PT'S CURRENT CONDITION. PER PANCHO, WILL CALL BACK WITH MORE INFORMATION REGARDING TRANSFERRING PT.
[2020-01-03] MEDS: MIDAZOLAM MDV 50 MG in NACL 0.9% 40 ML IV PRN (10:29)
--- NOTE | 2020-01-03 10:30 | NUR ---
GAVE REPORT TO SHERRY HOLLOWAY, RECEIVING PATIENT AT [facility].
--- NOTE | 2020-01-03 11:00 | NUR ---
GAVE REPORT TO BREANNA GUPTA.
--- NOTE | 2020-01-03 11:06 | NUR ---
STABLE SEDATED NO PULMONARY DISTRESS NOTED EQUAL CHEST RISE GOOD AERATION THROUGHOUT BILATERAL LUNG GARDUNO AIRWAY PATENT Addendum: 01/03/20 at 1118 by Deangelo Álvarez RT [facility] AT BEDSIDE
--- NOTE | 2020-01-03 11:10 | NUR ---
SHERRY YBARRA INFORMED ME THAT [facility] ADVISED CANCELLED REFINERY TECHNICIAN. PT WILL REMAIN HERE.
--- NOTE | 2020-01-03 12:00 | NUR ---
DR WHITMORE AT BEDSIDE UPDATING PT'S SON AND DAUGHTER OF CONDITION
--- NOTE | 2020-01-03 12:15 | NUR ---
ORAL CARE PROVIDED
[2020-01-03] MEDS: DEXAMETHASONE 4 MG/ML VIAL IVP SCH ×2 (13:00→13:30)
--- NOTE | 2020-01-03 14:30 | NUR ---
[facility] ARRIVED TO TRANSFER PT. EMT MARIANNE ADVISED THAT THE CALL WAS CANCELLED BY DISPATCH DUE TO LACK OF QUALIFIED RN PART OF TRANSPORT TEAM TO MONITOR DRIPS. I ADVISED SON SOURAV VIA TELEPHONE OF THE CHANGE
--- NOTE | 2020-01-03 14:34 | NUR ---
SEDATED NO SOB NOTED GOOD CHEST RISE ENDOTRACHEAL SUCTION FOR SMALL THIN PALE YELLOW SECRETIONS AIRWAY PATENT
--- NOTE | 2020-01-03 14:35 | NUR ---
RT AT BEDSIDE
--- NOTE | 2020-01-03 15:45 | NUR ---
GAVE REPORT TO RECEIVING RN FROM [facility]. VITAL SIGNS STABLE.
--- NOTE | 2020-01-03 16:40 | NUR ---
PT TRANSFERRED TO [facility] ICU FOR HIGHER LEVEL OF CARE X 3 ASSISTS VIA [facility] CCT. DISCHARGE PAPERWORK GIVEN TO [facility] RN. PT STILL ON TPN, FENTANYL AND VERSED DRIPS UPON TRANSFER. VSS. NO S/SX OF ACUTE DISTRESS NOTED.
== END 2020-01-03 16:40 | disposition short-term general hospital (02) | DRG 720 ==
LOC: MED 22:32 → MIC 12-30 03:19
PROVIDERS: ADMIT General Practice; ATTEND General Practice
PROC: 02HV33Z Insertion of Infusion Device into Superior Vena Cava, Percutaneous Approach (ICD-10-PCS; principal; 2019-12-30)
PROC: 5A1945Z Respiratory Ventilation, 24-96 Consecutive Hours (ICD-10-PCS; 2019-12-30)
PROC: B548ZZA Ultrasonography of Superior Vena Cava, Guidance (ICD-10-PCS; 2019-12-30)
PROC: 0BH17EZ Insertion of Endotracheal Airway into Trachea, Via Natural or Artificial Opening (ICD-10-PCS; 2019-12-30)
PROC: 5A1945Z Respiratory Ventilation, 24-96 Consecutive Hours (ICD-10-PCS; 2020-01-02)
DX: A41.9 Sepsis, unspecified organism (principal); J96.21 Acute and chronic respiratory failure with hypoxia; N17.0 Acute kidney failure with tubular necrosis; R65.21 Severe sepsis with septic shock; E66.01 Morbid (severe) obesity due to excess calories; J05.10 Acute epiglottitis without obstruction; E44.1 Mild protein-calorie malnutrition; Z68.41 Body mass index [BMI] 40.0-44.9, adult; J39.0 Retropharyngeal and parapharyngeal abscess; F15.10 Other stimulant abuse, uncomplicated; E04.1 Nontoxic single thyroid nodule; E87.6 Hypokalemia; H66.90 Otitis media, unspecified, unspecified ear; J39.2 Other diseases of pharynx; R65.20 Severe sepsis without septic shock; N39.0 Urinary tract infection, site not specified; J32.0 Chronic maxillary sinusitis; R74.0 Nonspecific elevation of levels of transaminase and lactic acid dehydrogenase [LDH]; R19.7 Diarrhea, unspecified; N39.3 Stress incontinence (female) (male); F17.210 Nicotine dependence, cigarettes, uncomplicated; Z98.84 Bariatric surgery status; Z90.49 Acquired absence of other specified parts of digestive tract; Z79.899 Other long term (current) drug therapy
CPT/HCPCS: 36415; 36600; 70491; 71045; 76705; 80048; 80053; 80076; 80202; 80305; 81001; 82150; 82803; 82948; 83036; 83605; 83690; 83735; 83880; 84100; 84134; 84436; 84443; 84484; 85025; 85610; 85730; 86704; 86706; 86708; 86709; 86803; 86886; 86900; 86901; 87040; 87070; 87081; 87086; 87186; 87205; 87340; 89220; 93970; 94002; 94003; 94640; 96374; 99291; 99292; A9153; C1751; C9113; J1100; J1644; J1815; J2001; J2060; J2250; J2270; J2543; J2704; J2920; J2930; J3010; J3370; J3480; J3490; J7030; J7060; J7613; Q0092; Q9967

== ENCOUNTER 2021-05-17 09:25 | Emergency (ER) | payer MEDICAID ==
[~2021-05-17] VITALS: Ht 170.2 cm; Wt 90.7 kg
[~2021-05-17 09:25] MED LIST changes: -NORCO 10/325 MG1 TAB PO; +PIPE1PDS26 IV; -UNKNOWN ANTIBIOTIC PO; +VANC1PLA7 IV
[2021-05-17 09:43] VITALS: BP 145/73
--- NOTE | 2021-05-17 10:37 | NUR ---
pt called at 1035 and pt was not found in waiting room or ambulance bay
--- NOTE | 2021-05-17 10:50 | NUR ---
CALLED FOR PT BUT NO ANSWER
--- NOTE | 2021-05-17 11:09 | NUR ---
PT NOT FOUND AFTER 3 ATTEMPTS, ERMD MADE AWARE PT ELOPED
[2021-05-17 11:10] VITALS: BP 145/73
--- NOTE | 2021-05-17 11:10 | NUR ---
PT LEFT FACILITY WITHOUT NOTIFYING STAFF, ERMD AWARE
== END 2021-05-17 10:37 | disposition left against medical advice (07) ==
LOC: MED 09:25
DX: L29.9 Pruritus, unspecified (principal); Z53.21 Procedure and treatment not carried out due to patient leaving prior to being seen by health care provider

== ENCOUNTER 2022-04-01 02:17 | Emergency (ER) | payer MEDICAID ==
[~2022-04-01] VITALS: Ht 160 cm; Wt 122.5 kg
[2022-04-01 02:30] VITALS: BP 162/93
--- NOTE | 2022-04-01 02:54 | NUR ---
Dr. Mcgarry examining patient.
[2022-04-01] MEDS ORDERED: SULF-59 PO (02:58)
[2022-04-01 03:14] VITALS: BP 162/93
--- NOTE | 2022-04-01 03:15 | NUR ---
Patient discharged with v/s stable. Written and verbal after care instructions given and explained. Patient alert, oriented and verbalized understanding of instructions. Ambulatory with steady gait. All questions addressed prior to discharge. ID band removed. Patient advised to follow up with PMD. Rx of BACTRIM DS TABLETS given. Patient educated on indication of medication including possible reaction and side effects. Opportunity to ask questions provided and answered. a/ox4, vss, ambulatory, unlabored breathing, and calm demenaor.
--- NOTE | 2022-04-01 03:15 | NUR ---
NO NURSING INTERVENTIONS NEEDED
== END 2022-04-01 03:15 | disposition home or self-care (01) ==
LOC: MED 02:17
DX: L03.311 Cellulitis of abdominal wall (principal); L03.811 Cellulitis of head [any part, except face]
CPT/HCPCS: 99283

== ENCOUNTER 2023-02-20 05:45 | Emergency (ER) | payer MEDICAID ==
[~2023-02-20] VITALS: Ht 172.7 cm; Wt 115.7 kg
[~2023-02-20 05:45] MED LIST changes: +SULF-59 PO
--- NOTE | 2023-02-20 05:45 | NUR ---
PT TO BED 11
[2023-02-20 05:52] VITALS: BP 115/64
--- NOTE | 2023-02-20 06:13 | NUR ---
Patient discharged with v/s stable. Written and verbal after care instructions given and explained. New rx for keflex. Patient verbalized understanding. Ambulatory with steady gait. All questions addressed prior to discharge. Advised to follow up with PMD.
[2023-02-20] MEDS ORDERED: CEPH-588 PO (06:28)
[2023-02-20 06:31] VITALS: BP 115/64
--- NOTE | 2023-02-20 06:31 | NUR ---
Pt seen and evaluated by OCTAVIA
== END 2023-02-20 06:31 | disposition home or self-care (01) ==
LOC: MED 05:45
DX: L03.115 Cellulitis of right lower limb (principal); I10 Essential (primary) hypertension; Z79.899 Other long term (current) drug therapy
CPT/HCPCS: 99282; 99283

== ENCOUNTER 2023-05-22 18:47 | Emergency (ER) | payer MEDICAID ==
[~2023-05-22] VITALS: Ht 172.7 cm; Wt 122.0 kg
[~2023-05-22 18:47] MED LIST changes: +CEPH-588 PO
[2023-05-22 18:53] VITALS: BP 116/59; PULSE 90; RESP 20; TEMP 96.4; O2SAT 96
[2023-05-22] MEDS ORDERED: HYDR30CR8 RC (19:22)
[2023-05-22] MEDS ORDERED: CEPH-588 PO (19:22)
--- NOTE | 2023-05-22 19:43 | NUR ---
Patient discharged with v/s stable. Written and verbal after care instructions given and explained. Patient alert, oriented and verbalized understanding of instructions. Ambulatory with steady gait. All questions addressed prior to discharge. ID band removed. Patient advised to follow up with PMD. Rx of KELFEX, PROCTOZONE-C given. Patient educated on indication of medication including possible reaction and side effects. Opportunity to ask questions provided and answered.
== END 2023-05-22 19:43 | disposition home or self-care (01) ==
LOC: MED 18:47
DX: R21 Rash and other nonspecific skin eruption (principal); Z79.899 Other long term (current) drug therapy
CPT/HCPCS: 99283